=== PATIENT | female | born 1950 | race Caucasian/White ===

== ENCOUNTER → 2016-10-02 | Outpatient (CLI) | payer OTHER ==
[~2016-10-02] MED LIST: ACET-1256 PO; ASC400 PO; ATOR-22 PO; BUTA1CAP17 PO; CHOL100010 PO; CLS1 PO; CLTP PO; CYAN3INJ IM; FAMO20TA11 PO; LCTX PO; MULT-240 PO; RMCI IV
[2016-10-02 12:39] LABS: HEMATOCRIT 41.3 % (37-47); MEAN CELL VOLUME 90.6 fL (80-100); MEAN CORPUSCULAR HEMOGLOBIN 29.8 pg (25-34); MEAN CORPUSCULAR HGB CONC 32.9 g/dl (32-36); MEAN PLATELET VOLUME 9.4 fL (7.4-10.4); PLATELET COUNT 388 K/uL (130-400); RED BLOOD COUNT 4.56 M/uL (4.2-5.4); WHITE BLOOD COUNT 7.35 K/uL (4.8-10.8)
[2016-10-02 13:55] LABS: EOSINOPHIL % 3.6 %; LARGE GRANULAR LYMPH ABSOLUTE 1.52 K/uL; LARGE GRANULAR LYMPHOCYTE % 20.7 %; LYMPH ABS # 3.84 K/uL (1.2-3.4); LYMPHOCYTE % 52.3 %; NEUTROPHILS % 18.9 %
[2016-10-02 16:05] LABS: ALT/SGPT 34 U/L (12-78); AST/SGOT 29 U/L (15-37); BLOOD UREA NITROGEN 18 mg/dl (7-18); BUN/CREATININE RATIO 17.7 (10-20); CALCIUM 9.4 mg/dl (8.5-10.1); CARBON DIOXIDE 29 mmol/L (21-32); CHLORIDE 106 mmol/L (98-107); GLUCOSE 94 mg/dl (70-99); POTASSIUM 3.9 mmol/L (3.5-5.1); SODIUM 141 mmol/L (136-145)
[2016-10-02 16:09] LABS: ALB/GLOB RATIO 0.9 (0.9-2); ALKALINE PHOSPHATASE 63 U/L (45-117); CHOLESTEROL 208 mg/dl (0-200); CHOLESTEROL/HDL RATIO 3.9; HDL CHOLESTEROL 54 mg/dl; LDL CHOLESTEROL CALCULATED 109 mg/dl; TOTAL IRON BINDING CAPACITY 435 mcg/dl (250-450); TRIGLYCERIDES 226 mg/dl (0-150); VERY LOW DENSITY LIPOPROT CALC 45 mg/dl
[2016-10-02 16:21] LABS: COMPLETE YES
--- NOTE | 2016-10-08 10:15 | CODING QUERY MEDICAL NECESSITY ---
CQSUPPORTING DIAGNOSIS NEEDED A supporting diagnosis is required for the test/procedure performed on this patient in order for us to be reimbursed by the patient's insurance. Please provide a supporting diagnosis for the following test/procedure listed below next to the test name along with your signature. *If there is no additional diagnosis for this patient that would support the following test/procedure please document that below next to the test/procedure. Test(s)/Procedure(s) that require a supporting diagnosis: DOS 10/02/16 VITAMIN D VITAMIN B12 SERUM IRON STUDY ORDERED BY HAYLEE LAGOS Provider Signature: Date: Thank you Amanda Sherwood Health Information Management Once completed, please kindly fax back to [phone] For questions please call [phone]
== END | disposition home or self-care (01) ==
LOC: C.LAB1850 10:43
PROVIDERS: ATTEND Physician Assistant
DX: R53.83 Other fatigue (principal); E78.5 Hyperlipidemia, unspecified; D51.0 Vitamin B12 deficiency anemia due to intrinsic factor deficiency

== ENCOUNTER → 2016-10-07 | Outpatient (CLI) | payer OTHER ==
--- NOTE | 2016-10-07 16:44 | MAMMOGRAPHY REPORT ---
BILATERAL DIGITAL SCREENING MAMMOGRAM WITH CAD: 10/07/2016 CLINICAL HISTORY: Routine screening. Patient has no complaints. TECHNIQUE: Bilateral CC, MLO and repeat MLO views were obtained. Current study was also evaluated w ith a Computer Aided Detection (CAD) system. COMPARISON: Comparison is made to exams dated: 06/20/2015 mammogram, 06/19/2014 mammogram, 04/27/2013 mammogram - [facility], and 10/25/2008 mammogram - [facility]. BREAST COMPOSITION: There are scattered areas of fibroglandular density in both breasts. FINDINGS: There are scattered bilateral benign-appearing round and punctate microcalcifications. No suspicious mass, architectural distortion or cluster of suspicious microcalcifications is seen. IMPRESSION: ACR BI-RADS CATEGORY 1: NEGATIVE There is no mammographic evidence of malignancy. A 1 year screening mammogram is recommended. The p atient will receive written notification of the results. Approximately 10% of breast cancers are not detected with mammography. A negative mammographic repor t should not delay biopsy if a clinically suggestive mass is present. Isabel Hearn M.D. ay/:10/07/2016 15:56:46 Linoleum Layer Helper: Guilherme DE PAZ(R)(M), [facility] letter sent: Normal 1/2 BI-RADS Code: ACR BI-RADS Category 1: Negative
== END | disposition home or self-care (01) ==
LOC: C.MAMM 15:09
PROVIDERS: ATTEND Internal Medicine
DX: Z12.31 Encounter for screening mammogram for malignant neoplasm of breast (principal)

== ENCOUNTER → 2016-10-28 | Outpatient (CLI) | payer OTHER | END | disposition home or self-care (01) | LOC: C.LABBFT 12:49 | PROVIDERS: ATTEND Physician Assistant Medical | DX: R53.83 Other fatigue (principal) ==

== ENCOUNTER → 2017-05-31 | Outpatient (CLI) | payer OTHER ==
--- NOTE | 2017-05-31 16:35 | DIAGNOSTIC IMAGING REPORT ---
TWO VIEW CHEST CLINICAL HISTORY: Bronchitis. FINDINGS: PA and lateral chest radiographs are compared to study dated 06/09/2011. The cardiomediastinal silhouette is unremarkable. The lungs and pleural spaces are clear. There is no pneumothorax. The skeletal structures are osteopenic. The bony thorax appears intact. Cholecystectomy clips are noted. IMPRESSION: No active disease in the chest. Electronically signed by: Morteza Garnica M.D. 05/31/2017 4:34 PM Dictated Date/Time: 05/31/2017 4:34 PM
== END | disposition home or self-care (01) ==
LOC: C.RAD1850 16:08
PROVIDERS: ATTEND Internal Medicine
DX: J20.9 Acute bronchitis, unspecified (principal)

== ENCOUNTER 2017-06-18 17:33 | Inpatient (IN) | payer OTHER ==
[~2017-06-18] VITALS: Ht 170.2 cm; Wt 114.9 kg
[~2017-06-18 17:33] MED LIST changes: -ACET1TAB84 PO; -ASPI81TA28 PO; -CALC-579 PO; -CHOL100027 PO; -COLE1TAB5 PO; -CYNI1000 IM; -FAMO40TA6 PO; -LPT40 PO; -MESA1TAB4 PO; -PLV75 PO; -PROB1TAB16 PO; -RMCI IV
[2017-06-18 17:37] VITALS: Ht 170.2 cm; Wt 114.9 kg
[2017-06-18] MEDS ORDERED: ASPIRIN 81 MG CHEW PO STA (17:47)
[2017-06-18] MEDS ORDERED: RMCI IV (18:05)
--- NOTE | 2017-06-18 18:05 | EMERGENCY ROOM VISIT NOTE ---
History Report prepared by Deepak: Hernesto Medeiros Under the Supervision of: Dr. Morteza Peterson M.D. First contact with patient: 17:44 Chief Complaint: STROKE SYMPTOMS Stated Complaint: STROKE SX, ABN MRI- PHYSICIAN REFERRED History of Present Illness The patient is a 66 year old female who presents to the Emergency Room with complaints of worsening stroke symptoms for the past couple of months. The patient states that she has been getting increasingly dizzy, and she has been getting worse headaches. She states that she feels lightheaded and off balanced. She additionally states that she had some right neck pain that went into her head a week ago. The patient also reports that occasionally she loses her vision, though she does not lose any consciousness. She had some left facial numbness a couple of months ago, and she states that she has not noticed any weakness. The patient states that she saw a new PCP this week, and she had an MRI of her brain done today, and it was abnormal. The patient additionally states that she has a chest heaviness, though she recently had bronchitis. Source of History: patient Onset: a couple of months ago Position: other (global) Quality: other (stroke symptoms) Timing: worsening Associated Symptoms: + headache, + neck pain, No LOC Note: Associated symptoms: Dizzy, losing her vision, and chest heaviness. Review of Systems See HPI for pertinent positives & negatives. A total of 10 systems reviewed and were otherwise negative. Past Medical & Surgical Medical Problems: (1) GERD (gastroesophageal reflux disease) (2) HLD (hyperlipidemia) Family History Diabetes mellitus FH: heart disease Social History Smoking Status: Never Smoker Alcohol Use: none Drug Use: none Marital Status: Occupation Status: employed Current/Historical Medications Scheduled Acetaminophen (Tylenol), 1,000 MG PO HS Calcium Carbonate-Cholecalcife (Calcium/Vitamin D3 600-400 mg-Unit), 1 TAB PO BID Cholecalciferol (Vitamin D 1000 Unit), 1,000 INTER.UNIT PO BID Colestipol Hcl (Colestipol Hcl), 1 GM PO BID Cyanocobalamin (Cyanocobalamin), 1,000 MCG IM MONTHLY Famotidine (Pepcid), 20 MG PO HS Famotidine (Pepcid), 40 MG PO BID Infliximab (Remicade), 200 MG IV Q 8 WEEKS Lactobacillus Acidophilus (Floranex), 1 TAB PO TIDM Mesalamine (Asacol Hd), 800 MG PO TID Multiple Vitamins W/ Minerals (Womens One Daily), 1 TAB PO DAILY Probiotic Product (Probiotic), 1 TAB PO BID Scheduled PRN Acetaminophen (Tylenol Arthritis Ext Rel), 650-1,300 MG PO DAILY PRN for Pain Idsixajpnf-Abjmeupuxlubu-Lingo (Fioricet), 1-2 TAB PO BID PRN for Headache Allergies Coded Allergies: Morphine (Verified Adverse Reaction, Severe, HALLUCINATIONS, 06/26/15) HALLUCINATIONS Amoxicillin (Verified Adverse Reaction, Mild, DIARRHEA, 06/26/15) Clavulanic Acid (Verified Adverse Reaction, Mild, DIARRHEA, 06/26/15) Physical Exam Vital Signs Date Time Temp Pulse Resp B/P (MAP) Pulse Ox O2 Delivery O2 Flow Rate FiO2 06/18/17 18:50 95 Room Air 06/18/17 18:00 95 Room Air 06/18/17 17:53 86 06/18/17 17:37 82 18 152/100 98 Room Air Physical Exam GENERAL: Patient is in no acute distress. HEENT: No acute trauma, normocephalic atraumatic, mucous membranes moist, no nasal congestion, no scleral icterus. NECK: No stridor, no adenopathy, no meningismus, trachea is midline. LUNGS: Clear to auscultation bilaterally, no wheeze, no rhonchi, breath sounds equal. HEART: Without murmurs gallops or rubs, regular rate and rhythm. ABDOMEN: Soft, nontender, bowel sounds positive, no hernias, no peritonitis. EXTREMITIES: No cyanosis or edema, full range of motion of all the joints without pain or difficulty, no signs for acute trauma. NEUROLOGIC: Awake, alert, oriented x3. No facial droop or speech slur. No lower extremity drift. No cerebellar dysfunction. Equal drift slightly in both upper extremities. SKIN: No rash, no jaundice, no diaphoresis. Medical Decision & Procedures ER Provider Diagnostic Interpretation: Radiology results as stated below per my review and radiologist interpretation: [~ rep ct add3]] Brain MRI WITHOUT CONTRAST HISTORY: DIZZINESS, headache,POST CONCUSSION SYNDROME TECHNIQUE: Multiplanar multisequence MRI of the brain was performed without the use of contrast. COMPARISON STUDY: Brain MRI 02/20/2013. FINDINGS: There are 2 punctate foci of restricted diffusion to within the right occipital lobe on image 14 and left posterior frontal lobe on image 19. These are consistent with acute infarcts. There are a few old punctate lacunar infarction within the bilateral cerebellar hemispheres. There is no old small right frontal infarct, unchanged. There is no mass, hematoma, or midline shift. The paranasal sinuses are clear. The mastoid air cells are clear. The ventricles and sulci demonstrate mild age-related involutional changes. Scattered foci of T2 hyperintensity seen within the periventricular and subcortical white matter are nonspecific but suggestive of mild microvascular ischemic changes. The major vascular flow voids at the skull base are well-maintained. IMPRESSION: 1. There are 2 punctate acute infarcts seen within the right occipital lobe and left posterior frontal lobe. 2. Mild microvascular ischemic changes are again noted. Electronically signed by: Rinku Tim M.D. 06/18/2017 4:10 PM Dictated Date/Time: 06/18/2017 4:02 PM CHEST ONE VIEW PORTABLE HISTORY: 66 years-old Female sob acute shortness of breath COMPARISON: Chest radiograph 05/31/2017 TECHNIQUE: Portable AP view of the chest FINDINGS: Cardiomediastinal and hilar silhouettes are within normal limits. Atherosclerosis of the aorta. No pneumothorax, pleural effusion, focal airspace consolidation or overt pulmonary edema. The bones of the chest appear grossly intact. IMPRESSION: No acute process. The above report was generated using voice recognition software. It may contain grammatical, syntax or spelling errors. Electronically signed by: Booker Cota M.D. 06/18/2017 6:16 PM Dictated Date/Time: 06/18/2017 6:15 PM Laboratory Results 06/18/17 18:00 Red Blood Count 4.52, Mean Corpuscular Volume 90.3, Mean Corpuscular Hemoglobin 30.1, Mean Corpuscular Hemoglobin Concent 33.3, Mean Platelet Volume 9.3 06/18/17 18:00 Test 06/18/17 18:00 White Blood Count 9.55 K/uL (4.8-10.8) Red Blood Count 4.52 M/uL (4.2-5.4) Hemoglobin 13.6 g/dL (12.0-16.0) Hematocrit 40.8 % (37-47) Mean Corpuscular Volume 90.3 fL (80-100) Mean Corpuscular Hemoglobin 30.1 pg (25-34) Mean Corpuscular Hemoglobin Concent 33.3 g/dl (32-36) Platelet Count 312 K/uL (130-400) Mean Platelet Volume 9.3 fL (7.4-10.4) RDW Standard Deviation 45.0 fL (36.4-46.3) RDW Coefficient of Variation 13.7 % (11.5-14.5) Prothrombin Time 9.5 SECONDS (9.0-12.0) Prothromb Time International Ratio 0.9 (0.9-1.1) Activated Partial Thromboplast Time 21.2 SECONDS (21.0-31.0) Partial Thromboplastin Ratio 0.8 Anion Gap 9.0 mmol/L (3-11) Est Creatinine Clear Calc Drug Dose 73.0 ml/min Estimated GFR () 66.8 Estimated GFR (Non- 57.7 BUN/Creatinine Ratio 20.0 (10-20) Calcium Level 9.7 mg/dl (8.5-10.1) Magnesium Level 1.9 mg/dl (1.8-2.4) Total Bilirubin 0.3 mg/dl (0.2-1) Direct Bilirubin < 0.1 mg/dl (0-0.2) Aspartate Amino Transf (AST/SGOT) 27 U/L (15-37) Alanine Aminotransferase (ALT/SGPT) 32 U/L (12-78) Alkaline Phosphatase 57 U/L (45-117) Total Creatine Kinase 65 U/L (26-192) Creatine Kinase MB 1.6 ng/ml (0.5-3.6) Creatine Kinase MB Ratio 2.5 (0-3.0) Troponin I < 0.015 ng/ml (0-0.045) Total Protein 7.7 gm/dl (6.4-8.2) Albumin 3.4 gm/dl (3.4-5.0) Laboratory results reviewed by me. Medications Administered Medications (Trade) Dose Ordered Sig/Alex Route Start Time Stop Time Status Last Admin Dose Admin Aspirin (Aspirin Chew) 324 mg NOW STAT PO 06/18/17 17:47 06/18/17 17:51 DC 06/18/17 18:14 324 MG ECG Indication: other (stroke like symptoms) Rate (beats per minute): 81 Rhythm: normal sinus Findings: no acute ischemic change, no ectopy Change: Patient's EKG interpreted by me. ED Course 174: The patient was evaluated in room A12. A complete history and physical exam was performed. 174: Aspirin 324mg PO 180: Discussed the patient's case with Dr. Boni Lopez. The patient will be evaluated for further management. Medical Decision Differential diagnoses include: Stroke, dysrhythmia, electrolyte imbalance, anemia, intracranial bleeding, and vertigo. There is no leukocytosis or worrisome anemia. No significant electrolyte abnormality, kidney failure or hepatitis. EKG shows a normal sinus rhythm, no acute ischemia. Cardiac enzyme testing times one is not consistent with acute cardiac injury. Chest x-ray does not show pneumonia or CHF. Brain MRI from today does show 2 acute infarcts. On my exam, there were no focal neurologic deficits. No speech slurring. The patient was given oral aspirin as stroke prevention. She is clearly not a candidate for TPA as she is well out of the window- she has had symptoms for days. Admission/observation is warranted. A stroke workup is required. I spoke to the patient and the family caseworker. The on-call hospitalist was consulted. Medication Reconcilliation Current Medication List: was personally reviewed by me Blood Pressure Screening Patient's blood pressure: Elevated blood pressure Monitored by the hospitalist Consults Time Called: 1804 Consulting Physician: Dr. Boni Lopez Returned Call: 1807 Discussed the patient's case with Dr. Boni Lopez. The patient will be evaluated for further management. Impression Primary Impression: CVA (cerebral vascular accident) Scribe Attestation The scribe's documentation has been prepared under my direction and personally reviewed by me in its entirety. I confirm that the note above accurately reflects all work, treatment, procedures, and medical decision making performed by me. Departure Information Dispostion Being Evaluated By Hospitalist Referrals RV. Bolton MD (PCP) Patient Instructions My [facility] Stroke History Time Last Known Well several days ago Stroke t-PA Criteria Reviewed Does NOT meet criteria for t-PA Reason t-PA Not Given Treatment not indicated
--- NOTE | 2017-06-18 18:18 | DIAGNOSTIC IMAGING REPORT ---
CHEST ONE VIEW PORTABLE HISTORY: 66 years-old Female sob acute shortness of breath COMPARISON: Chest radiograph 05/31/2017 TECHNIQUE: Portable AP view of the chest FINDINGS: Cardiomediastinal and hilar silhouettes are within normal limits. Atherosclerosis of the aorta. No pneumothorax, pleural effusion, focal airspace consolidation or overt pulmonary edema. The bones of the chest appear grossly intact. IMPRESSION: No acute process. The above report was generated using voice recognition software. It may contain grammatical, syntax or spelling errors. Electronically signed by: Booker Cota M.D. 06/18/2017 6:16 PM Dictated Date/Time: 06/18/2017 6:15 PM
[2017-06-18 18:22] LABS: HEMATOCRIT 40.8 % (37-47); HEMOGLOBIN 13.6 g/dL (12.0-16.0); MEAN CELL VOLUME 90.3 fL (80-100); MEAN CORPUSCULAR HEMOGLOBIN 30.1 pg (25-34); MEAN CORPUSCULAR HGB CONC 33.3 g/dl (32-36); MEAN PLATELET VOLUME 9.3 fL (7.4-10.4); PLATELET COUNT 312 K/uL (130-400); RED CELL DISTRIBUTION WIDTH CV 13.7 % (11.5-14.5); WHITE BLOOD COUNT 9.55 K/uL (4.8-10.8)
[2017-06-18 18:33] LABS: INR 0.9 (0.9-1.1); PTT PATIENT 21.2 SECONDS (21.0-31.0)
[2017-06-18 18:41] LABS: ALBUMIN 3.4 gm/dl (3.4-5.0); ALT/SGPT 32 U/L (12-78); BLOOD UREA NITROGEN 20 mg/dl (7-18); CALCIUM 9.7 mg/dl (8.5-10.1); CARBON DIOXIDE 24 mmol/L (21-32); CREATININE 1.02 mg/dl (0.60-1.20); GLUCOSE 102 mg/dl (70-99); POTASSIUM 3.7 mmol/L (3.5-5.1); SODIUM 136 mmol/L (136-145)
[2017-06-18] MEDS ORDERED: MAGNESIUM HYDROXIDE SUSP 30 ML UDC PO PRN (18:45)
[2017-06-18] MEDS ORDERED: ACETAMINOPHEN 325 MG TAB PO PRN (18:45)
[2017-06-18] MEDS ORDERED: PHARMACIST DISCHARGE MED REC CONSULT PRN (18:45)
[2017-06-18] MEDS ORDERED: BUTALBITAL/ACETAMIN/CAFFEINE TAB PO PRN (18:45)
[2017-06-18] MEDS ORDERED: ONDANSETRON INJ 2 MG/ML 2 ML VIAL IV PRN (18:45)
[2017-06-18 18:46] LABS: ALKALINE PHOSPHATASE 57 U/L (45-117); AST/SGOT 27 U/L (15-37); CKMB 1.6 ng/ml (0.5-3.6); TOTAL PROTEIN 7.7 gm/dl (6.4-8.2)
[2017-06-18 18:50] VITALS: O2SAT 95
[2017-06-18] MEDS ORDERED: COLE1TAB5 PO (18:51)
[2017-06-18] MEDS ORDERED: CALC-579 PO (18:51)
[2017-06-18] MEDS ORDERED: ACET1TAB84 PO (18:51)
[2017-06-18] MEDS ORDERED: PROB1TAB16 PO (18:51)
[2017-06-18] MEDS ORDERED: FAMO40TA6 PO (18:51)
[2017-06-18] MEDS ORDERED: CHOL100027 PO (18:51)
[2017-06-18] MEDS ORDERED: MESA1TAB4 PO (18:51)
[2017-06-18] MEDS ORDERED: CYNI1000 IM (18:51)
--- NOTE | 2017-06-18 18:55 | History and Physical ---
History & Physical Date & Time of Service: Jun 18, 2017 at 18:41 Chief Complaint: Stroke Sx, Abn Mri- Physician Referred Primary Care Physician: RV. Bolton MD History of Present Illness Source: patient 66 y/o F who was sent to the ED by her PCP after abn MRI findings. Pt was seen this week for a new pt physical with Dr. Ambrose. She noted to Dr. Ambrose that she has been having dizziness, headaches, fatigue, and cognitive issues with occasional complete loss of vision for the last few years. This started after she had a concussion about 5 years ago (old MRI was 2012) after a fall in a warehouse freezer. No acute findings on MRI at that time, but since that time she started having these sx and they are increasing in intensity, duration, and frequency recently. She has had no recent falls. She does not remember her initial fall but is not sure if she blacked out during or after that fall. Pt states she never loses consciousness, but does occasionally have blacked out vision. She can hear and think and is aware of what is happening. Vision will spontaneously return. She also has cognitive issues in the form of inability to form words. She knows what she wants to say and is not confused, but cannot make her mouth forms words at times. She also has noted that she will occasionally do the opposite of directives that are given to her. No fawad confusion, word slurring, facial droop, inability to use UE/LE. She has no issues with PO intake, specifically coughing or choking with PO. Occasional chest heaviness, but no chest pain. Pt denies fever, SOB, abd pain, n/v/c/d, LE pain or swelling. Past Medical/Surgical History Crohn's GERD B12 deficiency Concussion 2012 Denies PA, DM, HTN, prior hx of CVA Family History Family history was reviewed; no changes noted. Mother had an PA MGF had a CVA Social History Smoking Status: Never Smoker Alcohol Use: occasionally (rarely) Drug Use: none Marital Status: Housing status: lives with family Occupational Status: employed Immunizations History of Influenza Vaccine: No History of Tetanus Vaccine?: No History of Pneumococcal: No History of Hepatitis B Vaccine: No Multi-Drug Resistant Organisms History of MDRO: No Allergies Coded Allergies: Morphine (Verified Adverse Reaction, Severe, HALLUCINATIONS, 2/3/16) HALLUCINATIONS Amoxicillin (Verified Adverse Reaction, Mild, DIARRHEA, 06/26/15) Clavulanic Acid (Verified Adverse Reaction, Mild, DIARRHEA, 06/26/15) Home Medications Scheduled Acetaminophen (Tylenol), 1,000 MG PO HS Atorvastatin (Lipitor), 20 MG PO HS Calcium/Vitamin D (Caltrate 600 Plus *), 1 TAB PO BID Cholecalciferol (Vitamin D), 1,000 INTER.UNIT PO BID Colestipol Hcl (Colestid *), 1 GM PO BID Cyanocobalamin (Vitamin B-12 Inj), 1,000 MCG IM MONTHLY Famotidine (Pepcid), 20 MG PO HS Infliximab (Remicade), 100 MG IV Q 6 WEEKS Lactobacillus Acidophilus (Floranex), 1 TAB PO TIDM Mesalamine (Asacol *), 800 MG PO TID Multiple Vitamins W/ Minerals (Womens One Daily), 1 TAB PO DAILY Scheduled PRN Gkolyfnksn-Wycnilxheiunh-Nwmxs (Fioricet), 1-2 TAB PO BID PRN for Headache Review of Systems Pertinent positives and negatives reviewed in HPI--all others negative Physical Exam Vital Signs Date Time Temp Pulse Resp B/P (MAP) Pulse Ox O2 Delivery O2 Flow Rate FiO2 06/18/17 18:00 95 Room Air 06/18/17 17:53 86 06/18/17 17:37 82 18 152/100 98 Room Air General Appearance: no apparent distress, + obese Head: normocephalic, atraumatic Eyes: normal inspection, PERRL, EOMI, sclerae normal Respiratory/Chest: normal breath sounds, no respiratory distress Cardiovascular: regular rate, rhythm, no edema Abdomen/GI: non tender, soft Extremities/Musculoskelatal: no calf tenderness, no pedal edema Neurologic/Psych: lead former II-XII nml as tested, alert, normal mood/affect, oriented x 3, + pertinent finding (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, 5/5 strength against resistance in LE in all planes) Skin: normal color, warm/dry Diagnostics Laboratory Results Results Past 24 Hours Test 06/18/17 17:47 06/18/17 18:00 06/18/17 18:32 Range/Units Creatine Kinase MB Ratio 0-3.0 White Blood Count 9.55 4.8-10.8 K/uL Red Blood Count 4.52 4.2-5.4 M/uL Hemoglobin 13.6 12.0-16.0 g/dL Hematocrit 40.8 37-47 % Mean Corpuscular Volume 90.3 80-100 fL Mean Corpuscular Hemoglobin 30.1 25-34 pg Mean Corpuscular Hemoglobin Concent 33.3 32-36 g/dl Platelet Count 312 130-400 K/uL Mean Platelet Volume 9.3 7.4-10.4 fL RDW Standard Deviation 45.0 36.4-46.3 fL RDW Coefficient of Variation 13.7 11.5-14.5 % Prothrombin Time 9.5 9.0-12.0 SECONDS Prothromb Time International Ratio 0.9 0.9-1.1 Activated Partial Thromboplast Time 21.2 21.0-31.0 SECONDS Partial Thromboplastin Ratio 0.8 Diagnostic Radiology MRI: 1. There are 2 punctate acute infarcts seen within the right occipital lobe and left posterior frontal lobe. 2. Mild microvascular ischemic changes are again noted. Normal EKG Impression Assessment and Plan 66 y/o F who was admitted on 06/18 for CVA CVA: MRI noted for acute lesions in R occipital and L posterior frontal ?? related to concussion hx Reports carotid US neg as outpt, not listed in system CT head/neck pending ECHO pending CBC, PRP, TSH, lipids, A1c pending Recent lipid panel 09/2016 was WNL in a non-DM/PA/CVA pt and pt denies current use of medication Will start statin, plavix Neuro checks, neuro c/s No ambulation issues, will hold on PT/OT Elevated BP: noted in the ED, no hx of HTN Monitor for now and tx if ongoing Crohn's: stable, continue home meds GERD: continue home meds Other: Full code SCDs for DVT proph Reg diet Level of Care Telemetry Resuscitation Status FULL RESUSCITATION VTE Prophylaxis VTE Risk Assessment Done? Y/N: Yes Risk Level: Low
[2017-06-18] MEDS ORDERED: INFLIXIMAB 100 MG/10 ML VIAL IV SCH (19:00)
[2017-06-18] MEDS ORDERED: NON-FORMULARY MEDICATION (Acetaminophen (Tylenol Arthritis Ext Rel) 650 MG) PO PRN (19:00)
[2017-06-18] MEDS ORDERED: OPTIRAY 320 IV PRN (19:00)
--- NOTE | 2017-06-18 19:36 | DIAGNOSTIC IMAGING REPORT ---
HEAD CTA HISTORY: Stroke symptoms. TECHNIQUE: Multiaxial CT images of the head were performed both before and after the intravenous administration of contrast to evaluate the major cerebral vessels. Maximum intensity projection images were also obtained. A dose lowering technique was utilized adhering to the principles of ALARA. COMPARISON: Head CT 02/10/2013. Brain MRI 06/18/2017. FINDINGS: There is no mass, hematoma, midline shift, or acute infarct. There is an old small right frontal lobe infarct. Visualized intracranial internal carotid arteries, distal vertebral arteries, and basilar artery are widely patent. There is no significant stenosis, occlusion, or aneurysm seen within the bilateral ACAs, MCAs, or veterans services specialist. IMPRESSION: No significant stenosis, occlusion, or aneurysm within the [place]. Electronically signed by: Rinku Tim M.D. 06/18/2017 7:35 PM Dictated Date/Time: 06/18/2017 7:29 PM
--- NOTE | 2017-06-18 19:39 | DIAGNOSTIC IMAGING REPORT ---
NECK ANGIO WITH CONTRAST CLINICAL HISTORY: 66 years-old Female presents with acute punctate infarcts of the right occipital and right posterior frontal lobe COMPARISON STUDY: MRI brain of same day TECHNIQUE: Following the IV administration of 119 of Optiray 320, CT angiogram of the neck was performed from the aortic arch to the skull base. Images are reviewed in the axial, sagittal, and coronal planes. 3-D MIPS images are created and assessed. IV contrast was administered without complication. All measurements were calculated based on NASCET criteria. A dose lowering technique was utilized adhering to the principles of ALARA. CT DOSE: 1144.14 mGy.cm FINDINGS: The opacified pulmonary arterial tree appears unremarkable. The aortic arch appears unremarkable without aneurysm or dissection. Imaged bilateral subclavian arteries appear patent. There is mild tortuosity involving the proximal portions of the common carotid arteries which are widely patent. There is a mild degree of mixed plaquing within the left carotid ball causing less than 50% stenosis. No significant atherosclerosis of the right carotid bulb. The bilateral internal carotid arteries are widely patent. There is mild atherosclerotic plaquing involving the cavernous and clinoid portions of the bilateral internal carotid arteries, right greater than left causing less than 50% stenosis. The bilateral vertebral arteries are codominant and widely patent. No aneurysm, dissection or high-grade stenosis. The basilar artery is also widely patent. Mild subsegmental atelectasis of the lung apices. 1.2 cm low attenuating nodule of the right thyroid. Soft tissues are otherwise unremarkable. No pathologic adenopathy. Mild facet arthrosis throughout the cervical spine. Multilevel uncovertebral spurring. IMPRESSION: 1. Unremarkable CTA of the neck without high-grade stenosis, aneurysm, dissection or proximal branch occlusion. 2. Mild mixed plaquing of the left carotid bulb, bilateral cavernous and clinoid portions of the internal carotid arteries without high-grade stenosis. 3. 1.2 cm low attenuating nodule of the right thyroid. The above report was generated using voice recognition software. It may contain grammatical, syntax or spelling errors. Electronically signed by: Booker Cota M.D. 06/18/2017 7:38 PM Dictated Date/Time: 06/18/2017 7:30 PM
[2017-06-18 19:49] LABS: BASO % 0.2 %; BASO ABS # 0.02 K/uL (0-0.2); EOS % 5.2 %; IG# 0.02 K/uL (0.00-0.02); LYMPH ABS # 5.44 K/uL (1.2-3.4); MONO % 10.5 %; NEUT % 26.9 %; NEUT ABS # 2.57 K/uL (1.4-6.5)
[2017-06-18 19:56] VITALS: BP 156/94; PULSE 73; TEMP 36.7; O2SAT 95
[2017-06-18] MEDS: FAMOTIDINE 20 MG TAB PO SCH (20:32)
[2017-06-18] MEDS: CALCIUM 600MG + VIT D 400 IU TAB PO SCH (20:33)
[2017-06-18] MEDS: CHOLECALCIFEROL 1000 INTER.UNIT TAB PO SCH (20:33)
[2017-06-18] MEDS ORDERED: NON-FORMULARY MEDICATION (Probiotic Product (Probiotic) 1 TAB) PO SCH (21:00)
[2017-06-18] MEDS ORDERED: MESALAMINE 800 MG PO SCH (21:00)
[2017-06-18] MEDS ORDERED: MESALAMINE 400 MG CAPDR PO SCH (21:00)
[2017-06-18] MEDS ORDERED: FAMOTIDINE 20 MG TAB PO SCH (21:00)
[2017-06-18] MEDS ORDERED: [UNRECOGNIZED DRUG - OTHER] PO SCH (21:00)
[2017-06-18] MEDS ORDERED: CALCIUM CARBONATE PO SCH (21:00)
[2017-06-18] MEDS ORDERED: COLESTIPOL HCL 1 GM TAB PO SCH (21:00)
[2017-06-18] MEDS ORDERED: CHOLECALCIFEROL 1000 INTER.UNIT TAB PO SCH (21:00)
[2017-06-18] MEDS ORDERED: CHOLECALCIFEROL PO SCH (21:00)
[2017-06-18] MEDS ORDERED: ACETAMINOPHEN 500 MG TAB PO SCH (21:00)
[2017-06-18] MEDS: COLESTIPOL HCL 1 GM TAB PO SCH (21:46)
[2017-06-18 23:42] VITALS: BP 112/65; PULSE 67; TEMP 36.3; O2SAT 96
[2017-06-19 04:00] VITALS: BP 99/65; PULSE 63; TEMP 36.5; O2SAT 98
[2017-06-19 06:34] LABS: HEMOGLOBIN 12.8 g/dL (12.0-16.0); MEAN CELL VOLUME 89.8 fL (80-100); MEAN CORPUSCULAR HEMOGLOBIN 30.3 pg (25-34); MEAN CORPUSCULAR HGB CONC 33.7 g/dl (32-36); MEAN PLATELET VOLUME 8.9 fL (7.4-10.4); PLATELET COUNT 265 K/uL (130-400); RED CELL DISTRIBUTION WIDTH CV 13.9 % (11.5-14.5); RED CELL DISTRIBUTION WIDTH SD 45.3 fL (36.4-46.3); WHITE BLOOD COUNT 7.39 K/uL (4.8-10.8)
[2017-06-19 07:02] LABS: HEMOGLOBIN A1C 5.5 % (4.5-5.6)
[2017-06-19 07:13] LABS: CALCIUM 9.1 mg/dl (8.5-10.1); CREATININE 0.94 mg/dl (0.60-1.20)
[2017-06-19 07:29] LABS: BASO % 0.4 %; BASO ABS # 0.03 K/uL (0-0.2); EOS % 7.6 %; EOS ABS # 0.56 K/uL (0-0.5); IG# 0.01 K/uL (0.00-0.02); LYMPH % 61.2 %; LYMPH ABS # 4.52 K/uL (1.2-3.4); MONO % 11.5 %; MONO ABS # 0.85 K/uL (0.11-0.59); NEUT % 19.2 %; NEUT ABS # 1.42 K/uL (1.4-6.5)
[2017-06-19 07:34] VITALS: BP 123/83; PULSE 68; TEMP 36.6; O2SAT 98
[2017-06-19] MEDS: LACTOBACILLUS ACIDOPHILUS (FLORANEX) TAB PO SCH ×2 (07:54→11:53)
[2017-06-19] MEDS: FAMOTIDINE 20 MG TAB PO SCH (07:55)
[2017-06-19] MEDS: CALCIUM 600MG + VIT D 400 IU TAB PO SCH (07:56)
[2017-06-19] MEDS ORDERED: ATORVASTATIN 40 MG TAB PO SCH (09:00)
[2017-06-19] MEDS: CHOLECALCIFEROL 1000 INTER.UNIT TAB PO SCH (09:00)
[2017-06-19] MEDS ORDERED: CEROVITE ADV FORMULA TAB PO SCH (09:00)
[2017-06-19] MEDS ORDERED: CLOPIDOGREL BISULFATE 75 MG TAB PO SCH (09:00)
[2017-06-19] MEDS: COLESTIPOL HCL 1 GM TAB PO SCH (11:15)
[2017-06-19 11:32] VITALS: BP_SYST 172; BP_SYST 173; BP_DIAS 88; BP_DIAS 92; PULSE 61; TEMP 36.4; O2SAT 96
--- NOTE | 2017-06-19 12:06 | Neurology Consultation ---
Neurology Consultation Date of Consultation: Jun 19, 2017. Attending Physician: Tanner Babb D.O. Primary Care Physician: RV. Bolton MD Reason for Consultation: Stroke History of Present Illness Source: patient, hospital records This is a 66-year-old right-handed female who presents after MRI showing tiny acute strokes. Patient reports that the reason for the MRI was because she was having chronic ongoing issues of dizziness and headache. She feels like the symptoms have been going on since her concussion in 2012 but have been slowly worsening. She describes the dizziness as brief episodes of feeling like things are moving. She describes the headaches as daily. Tends to be more frontal. She may get a little bit of blurry vision with headaches. In addition she also notes some vision getting dark for a few seconds to minutes when she gets the dizziness episodes as well. She describes the headaches is also having tight or throbbing quality to them. The tender last hours to days. She typically takes Tylenol for them. Describes them mostly as a low level most of the time. Denies any headache history or migraine headache history. Reports that his sleep is okay but may have mild snoring. The patient does report having a bad headache last week and that lasted for 10- 15 minutes. Denies any other discrete new neurological symptoms. Denies any numbness or weakness. Reported some numbness or tingling of her upper lip a few days ago. Denies any changes with her walking. She does report some issues with word finding and cognition/memory that has been ongoing since her concussion. She also reports that sometimes she does feel some heart palpitations and more recently a heavy feeling in her chest but she thought this may been due to a recent viral illness. Patient also notes that her Remicade has been increased recently and she hasn't quite felt well since that medication changes well. MRI of the brain report and images from the 26 was reviewed by myself. The patient has to tiny subacute infarcts in the right occipital and left posterior frontal lobe. Also noted some small old lacunar infarcts in the bilateral cerebellum and right frontal. CTA of the head and neck noted some mild plaque formations but was otherwise unremarkable. Total cholesterol 198, LDL 112, HDL 47, triglycerides 196,Hg A1c 5.5 TSH was mildly elevated at 4.7 Past Medical/Surgical History Medical Problems: (1) CVA (cerebral vascular accident) Status: Acute Concussion with loss of consciousness 2012 Crohn's disease B12 deficiency DVT in right lower extremity that was described as superficial and likely secondary to trauma Family History Mother with SD, dyslipidemia, diabetes, CAD, A. fib, and possibly blood clots Maternal grandfather with CVA Maternal grandmother with A. fib Social History Patient is normally independent in her activities of daily living. No tobacco use. No alcohol use. No illegal drug use Smoking Status: Never smoker Alcohol Use: occasionally (rarely) Drug Use: none Marital Status: Occupation Status: employed Allergies Coded Allergies: Morphine (Verified Adverse Reaction, Severe, HALLUCINATIONS, 06/26/15) HALLUCINATIONS Amoxicillin (Verified Adverse Reaction, Mild, DIARRHEA, 06/26/15) Clavulanic Acid (Verified Adverse Reaction, Mild, DIARRHEA, 06/26/15) Current Inpatient Medications Current Inpatient Medications Medications (Trade) Dose Ordered Sig/Alex Route Start Time Stop Time Status Last Admin Dose Admin Atorvastatin Calcium (Lipitor Tab) 40 mg QAM PO 06/19/17 09:00 07/19/17 08:59 06/19/17 07:55 40 MG Clopidogrel Bisulfate (plAVix TAB) 75 mg QAM PO 06/19/17 09:00 07/19/17 08:59 06/19/17 07:55 75 MG Miscellaneous Information (Pharmacist Discharge Med Rec Consult) 1 ea UD PRN N/A 06/18/17 18:45 07/18/17 18:44 Acetaminophen (Tylenol Tab) 650 mg Q4H PRN PO 06/18/17 18:45 07/18/17 18:44 Magnesium Hydroxide (Milk Of Magnesia Susp) 30 ml Q12H PRN PO 06/18/17 18:45 07/18/17 18:44 Ondansetron HCl (Zofran Inj) 4 mg Q6H PRN IV 06/18/17 18:45 07/18/17 18:44 Acetaminophen (Tylenol Tab) 1,000 mg HS PO 06/18/17 21:00 07/18/17 20:59 06/18/17 20:32 1,000 MG Calcium/Vitamin D (Caltrate Plus Tab) 1 tab BID PO 06/18/17 21:00 07/18/17 20:59 06/19/17 07:56 1 TAB Cholecalciferol (Vitamin D Tab) 1,000 inter.unit BID PO 06/18/17 21:00 07/18/17 20:59 06/18/17 20:33 1,000 INTER.UNIT Colestipol HCl (Colestid Tab) 1 gm BID@1000,2200 PO 06/18/17 22:00 07/18/17 21:59 06/18/17 21:46 1 GM Lactobacillus Acidophilus (Floranex Tab) 1 tab TIDM PO 06/19/17 07:30 07/19/17 07:59 06/19/17 07:54 1 TAB Multivitamins/ Minerals (Multivitamin W/ Minerals Tab) 1 tab DAILY PO 06/19/17 09:00 07/19/17 08:59 06/19/17 07:56 1 TAB Acetaminophen/ Butalbital/ Caffeine (Fioricet Tab) 1-2 tabs PO BID PRN headache BID PRN PO 06/18/17 18:45 07/18/17 18:44 Ioversol (Optiray 320) 100 ml UD PRN IV 06/18/17 19:00 06/22/17 18:59 Famotidine (Pepcid Tab) 40 mg BID PO 06/18/17 21:00 07/18/17 20:59 06/19/17 07:55 40 MG Miscellaneous Information (Order Awaiting Action) 1 ea QS N/A 06/19/17 00:00 07/19/17 00:00 Review of Systems Complete review of systems is otherwise negative except for the above noted in history of present illness Physical Exam Vital Signs (Past 24 Hrs): Date Time Temp Pulse Resp B/P (MAP) Pulse Ox O2 Delivery O2 Flow Rate FiO2 06/19/17 11:32 36.4 61 18 172/88 (116) 96 173/92 (119) 06/19/17 08:00 Room Air 06/19/17 07:34 36.6 68 16 123/83 (96) 98 06/19/17 04:00 36.5 63 20 99/65 (76) 98 Room Air 06/19/17 04:00 Room Air 06/19/17 00:01 Room Air 06/18/17 23:42 36.3 67 20 112/65 (81) 96 Room Air 06/18/17 20:00 Room Air 06/18/17 19:56 36.7 73 18 156/94 (114) 95 Room Air 06/18/17 18:50 95 Room Air 06/18/17 18:00 95 Room Air 06/18/17 17:53 86 06/18/17 17:37 82 18 152/100 98 Room Air Gen.: Patient is alert and oriented in no acute distress, sitting in chair Heart: Regular rate and rhythm Extremities: No gross deformities or rashes noted Neurological examination: Mental status: Patient is alert and oriented to person place and time. Able to give his own history. Attention concentration normal for the situation. Remote and recent memory intact Speech is fluent without any dysarthria or aphasia noted Cranial nerves: Funduscopic examination was difficult to visualize. Pupils equally round and reactive to light. Extraocular muscles intact without nystagmus. No facial asymmetry noted. Facial sensation intact. Tongue midline. Good palatal elevation. Good shoulder shrug bilaterally. Hearing grossly intact voice. Strength: 5/5 both proximal and distal in all extremities .Tone is normal. Sensation: Grossly intact to light touch in all extremities. Romberg negative Deep tendon reflexes: +1 in bilateral biceps and patellar. Coordination: Patient has good finger to nose without dysmetria. Station within the chair was normal. Able to take a few steps without any instability or ataxia noted Laboratory Results Past 24 Hours: 06/19/17 06:24 Red Blood Count 4.23, Mean Corpuscular Volume 89.8, Mean Corpuscular Hemoglobin 30.3, Mean Corpuscular Hemoglobin Concent 33.7, Mean Platelet Volume 8.9, Neutrophils (%) (Auto) 19.2, Lymphocytes (%) (Auto) 61.2, Monocytes (%) (Auto) 11.5, Eosinophils (%) (Auto) 7.6, Basophils (%) (Auto) 0.4, Neutrophils # (Auto ) 1.42, Lymphocytes # (Auto) 4.52, Monocytes # (Auto) 0.85, Eosinophils # (Auto ) 0.56, Basophils # (Auto) 0.03 06/19/17 06:24 Test 06/18/17 18:00 06/19/17 06:24 Red Blood Cell Morphology Unremarkable Prothrombin Time 9.5 SECONDS (9.0-12.0) Prothromb Time International Ratio 0.9 (0.9-1.1) Activated Partial Thromboplast Time 21.2 SECONDS (21.0-31.0) Partial Thromboplastin Ratio 0.8 Estimated Average Glucose 111 mg/dl Hemoglobin A1c 5.5 % (4.5-5.6) Magnesium Level 1.9 mg/dl (1.8-2.4) Total Bilirubin 0.3 mg/dl (0.2-1) Direct Bilirubin < 0.1 mg/dl (0-0.2) Aspartate Amino Transf (AST/SGOT) 27 U/L (15-37) Alanine Aminotransferase (ALT/SGPT) 32 U/L (12-78) Alkaline Phosphatase 57 U/L (45-117) Total Creatine Kinase 65 U/L (26-192) Creatine Kinase MB 1.6 ng/ml (0.5-3.6) Creatine Kinase MB Ratio 2.5 (0-3.0) Troponin I < 0.015 ng/ml (0-0.045) Total Protein 7.7 gm/dl (6.4-8.2) Albumin 3.4 gm/dl (3.4-5.0) White Blood Count 7.39 K/uL (4.8-10.8) Red Blood Count 4.23 M/uL (4.2-5.4) Hemoglobin 12.8 g/dL (12.0-16.0) Hematocrit 38.0 % (37-47) Mean Corpuscular Volume 89.8 fL (80-100) Mean Corpuscular Hemoglobin 30.3 pg (25-34) Mean Corpuscular Hemoglobin Concent 33.7 g/dl (32-36) Platelet Count 265 K/uL (130-400) Mean Platelet Volume 8.9 fL (7.4-10.4) Neutrophils (%) (Auto) 19.2 % Lymphocytes (%) (Auto) 61.2 % Monocytes (%) (Auto) 11.5 % Eosinophils (%) (Auto) 7.6 % Basophils (%) (Auto) 0.4 % Neutrophils # (Auto) 1.42 K/uL (1.4-6.5) Lymphocytes # (Auto) 4.52 K/uL (1.2-3.4) Monocytes # (Auto) 0.85 K/uL (0.11-0.59) Eosinophils # (Auto) 0.56 K/uL (0-0.5) Basophils # (Auto) 0.03 K/uL (0-0.2) RDW Standard Deviation 45.3 fL (36.4-46.3) RDW Coefficient of Variation 13.9 % (11.5-14.5) Immature Granulocyte % (Auto) 0.1 % Immature Granulocyte # (Auto) 0.01 K/uL (0.00-0.02) Anion Gap 4.0 mmol/L (3-11) Est Creatinine Clear Calc Drug Dose 78.1 ml/min Estimated GFR () 73.8 Estimated GFR (Non- 63.7 BUN/Creatinine Ratio 15.9 (10-20) Calcium Level 9.1 mg/dl (8.5-10.1) Triglycerides Level 196 mg/dl (0-150) Cholesterol Level 198 mg/dl (0-200) HDL Cholesterol 47 mg/dl LDL Cholesterol, Calculated 112 mg/dl VLDL Cholesterol, Calculated 39 mg/dl Cholesterol/HDL Ratio 4.2 Thyroid Stimulating Hormone (TSH) 4.700 uIu/ml (0.300-4.500) Imaging As noted above in history of present illness Impression This is a 66-year-old female who presents with chronic symptoms of vertiginous dizziness and daily headaches with signs of tiny subacute infarcts in the right occipital and left posterior frontal lobe. There is also evidence on MRI of more chronic small vessel disease. Some of her headaches and mild cognitive symptoms could be an association. Otherwise no major neurological deficits on examination. Stroke risk factors identified at this time include mild dyslipidemia. Remicade that the patient takes for Crohn's disease does have some reported side effects of CVAs shortly after infusions. Uncertain if this could be a relationship to her current situation. Plan I have sent off some additional labs to see if the patient could have a hypercoagulable state contributing to a stroke since she does not have a lot of identifiable stroke risk factors. Agree with initiation of Plavix and statin medication for stroke prevention Echo results are pending and will need to be followed up to rule out cardiac embolic sources for stroke. Caution with Fioricet. Recommend not using Fioricet more than 2 days out of the week to avoid rebound headaches. Otherwise may continue with [id number] Tylenol as needed for headaches. Agree with speech evaluation. Recommend outpatient physical therapy evaluation and treatment for dizziness and headaches Follow-up mildly elevated TSH per hospitalist team and primary care. There has been some association with Remicade and strokes after infusion. It may be worth following up with her GI physician to see if they feel that there could be an association and whether her Crohn's disease medication should be changed. Avoid hypotension and dehydration Stroke risk factor modifications and recommendations: Blood pressure recommendations for the first month post hospital discharge 150/ 90-130/80, and after that blood pressure recommendations 130/80-110/70 Total cholesterol goal 100- 200 and LDL goal less than 100 Hemoglobin A1c goal less than 7 Encourage cardiovascular exercise at least 3 times a week for 30 minutes. Follow-up in neurology clinic in 1 month for post stroke hospital follow-up. May consider a Holter monitor as an outpatient to rule out paroxysmal A. fib if no clear identifiable stroke etiology is found If there is any questions or concerns, feel free to call/page me.
--- NOTE | 2017-06-19 12:25 | ECHOCARDIOGRAM REPORT ---
*NOTICE TO RECEIVING CONSTITUTION PARTY AGENCY This information is strictly Confidential and protected under [place] law. [place] law prohibits you from making any further disclosure of this information unless further disclosure is expressly permitted by the written consent of the person to whom it pertains or is authorized by law. A general authorization for the release of medical or other information is not sufficient for this purpose. Hospital accepts no responsibility if the information is made available to any other person, INCLUDING THE PATIENT. Interpretation Summary * Conclusions -- * The left ventricle is normal in size. * There is normal left ventricular wall thickness. * Ejection Fraction = 55-60%. * Left ventricular systolic function is normal. * The left ventricular wall motion is normal. * The right ventricle is normal in size and function. * The right ventricular systolic function is normal as assessed by tricuspid annular plane systolic excursion (TAPSE) (normal >1.5 cm). * Normal LA pressures * Negative Bubble study for right to left shunt * Mildly dilated ascending aorta. * Trivial pericardial effusion * Right ventricular systolic pressure is normal. Procedure Details * A complete two-dimensional transthoracic echocardiogram was performed (2D, M-mode, Doppler and color flow Doppler). * The study was technically adequate. * A saline contrast injection was performed to assess for cardiac shunting. * The injection was performed through an intravenous line in the left arm. * The attending nurse who injected the saline contrast was KONSTANTIN Goldberg. * A total of 10 cc of agitated saline was given. Left Ventricle * The left ventricle is normal in size. * There is normal left ventricular wall thickness. * Ejection Fraction = 55-60%. * Left ventricular systolic function is normal. * The left ventricular wall motion is normal. Right Ventricle * The right ventricle is normal in size and function. * The right ventricular systolic function is normal as assessed by tricuspid annular plane systolic excursion (TAPSE) (normal >1.5 cm). Atria * The left atrial size is normal. * Right atrial size is normal. Mitral Valve * The mitral valve leaflets appear thickened, but open well. * There is trace mitral regurgitation. Tricuspid Valve * The tricuspid valve is not well visualized, but is grossly normal. * There is mild tricuspid regurgitation. * Right ventricular systolic pressure is normal. Aortic Valve * The aortic valve is trileaflet. Pulmonic Valve * The pulmonic valve is not well seen, but is grossly normal. * Mild pulmonic valvular regurgitation. Great Vessels * The aortic root is normal size. * Mildly dilated ascending aorta. Pericardium/Pleural * Trivial pericardial effusion Great Vessels * Normal inferior vena cava size and collapsability with sniff indicates a normal right atrial pressure of 3 mmHg Left Ventricular Diastolic Function * Normal LA pressures Negative Bubble study for right to left shunt MMode 2D Measurements and Calculations IVSd 1.0 cm IVSs 1.5 cm LVIDd 4.0 cm LVIDs 2.7 cm LVPWd 0.97 cm LVPWs 1.2 cm IVS/LVPW 1.1 FS 32.8 % EDV(Teich) 71.6 ml ESV(Teich) 27.4 ml EF(Teich) 61.7 % EDV(cubed) 65.8 ml ESV(cubed) 20.0 ml EF(cubed) 69.6 % % IVS thick 46.6 % % LVPW thick 23.2 % LV mass(C)d 129.3 grams LV mass(C)dI 57.3 grams/m\S\2 LV mass(C)s 116.7 grams LV mass(C)sI 51.7 grams/m\S\2 SV(Teich) 44.2 ml SI(Teich) 19.6 ml/m\S\2 SV(cubed) 45.8 ml SI(cubed) 20.3 ml/m\S\2 EPSS 0.67 cm Ao root diam 3.4 cm Ao root area 8.9 cm\S\2 ACS 1.6 cm LA dimension 3.2 cm asc Aorta Diam 4.0 cm LA/Ao 0.94 LVOT diam 2.0 cm LVOT area 3.3 cm\S\2 LVAd ap4 28.8 cm\S\2 LVLd ap4 9.0 cm EDV(MOD-sp4) 74.9 ml EDV(sp4-el) 78.6 ml LVAs ap4 12.7 cm\S\2 LVLs ap4 6.8 cm ESV(MOD-sp4) 19.7 ml ESV(sp4-el) 20.0 ml EF(MOD-sp4) 73.7 % EF(sp4-el) 74.6 % LVAd ap2 24.8 cm\S\2 LVLd ap2 7.6 cm EDV(MOD-sp2) 66.2 ml EDV(sp2-el) 68.8 ml LVAs ap2 12.4 cm\S\2 LVLs ap2 7.1 cm ESV(MOD-sp2) 18.2 ml ESV(sp2-el) 18.4 ml EF(MOD-sp2) 72.5 % EF(sp2-el) 73.2 % LVLd %diff -18.43 % EDV(MOD-bp) 77.1 ml LVLs %diff 3.3 % ESV(MOD-bp) 19.2 ml EF(MOD-bp) 75.2 % SV(MOD-sp4) 55.2 ml SI(MOD-sp4) 24.5 ml/m\S\2 SV(MOD-sp2) 47.9 ml SI(MOD-sp2) 21.2 ml/m\S\2 SV(MOD-bp) 58.0 ml SI(MOD-bp) 25.7 ml/m\S\2 SV(sp4-el) 58.6 ml SI(sp4-el) 26.0 ml/m\S\2 SV(sp2-el) 50.4 ml SI(sp2-el) 22.3 ml/m\S\2 Doppler Measurements and Calculations MV E max anton 69.7 cm/sec MV A max anton 99.9 cm/sec MV E/A 0.70 MV dec time 0.22 sec Ao V2 max 123.1 cm/sec Ao max PG 6.1 mmHg Ao max PG (full) 2.0 mmHg OBED(V,A) 2.7 cm\S\2 OBED(V,D) 2.7 cm\S\2 LV V1 max PG 4.1 mmHg LV V1 max 100.8 cm/sec PI end-d anton 121.2 cm/sec TR max anton 244.4 cm/sec
[2017-06-19] MEDS ORDERED: LPT40 PO (14:02)
[2017-06-19] MEDS ORDERED: PLV75 PO (14:02)
[2017-06-19] MEDS ORDERED: ASPI81TA28 PO (14:02)
--- NOTE | 2017-06-19 14:19 | Discharge Instructions ---
Discharge Instructions Date of Service Jun 19, 2017. Admission Reason for Admission: CVA Discharge Discharge Diagnosis / Problem: New CVA right occipital lobe and left frontal lobe Discharge Goals Goal(s): Improve function, Improve disease control Activity Recommendations Activity Limitations: resume your previous activity . Instructions / Follow-Up Instructions / Follow-Up Medications: - PLAVIX: antiplatelet shown to reduce risk of future stroke, take once a day - ASPIRIN: 81mg daily, reduces risk of future stroke - LIPITOR: 40mg daily, cholesterol medication to stabilize plaques, lower cholesterol and reduce further stroke risk main adverse effect is muscle pain, discuss with Dr. Ambrose if you experience muscle pains, aches, cramps New findings of stroke on MRI brain: right occipital lobe and left posterior frontal lobe CT angiogram of head and neck showed that carotid arteries are patent and vessels in the head are normal, no aneurysms or other abnormalities echocardiogram of the heart was normal, no atrial septal defect no arrhythmias while on the playground monitor cholesterol was slightly elevated overall and LDL cholesterol was 112 blood pressure has been high at times but also normal at other times, no history of hypertension hypercoagulable blood work sent out, results will be back in about a week, Dr. Wu will have those results treatment will include aspirin and Plavix for antiplatelet effect, Lipitor to lower cholesterol please check your blood pressure once a day for the next week at different times of the day to see if it is elevated at home will defer to Dr. Ambrose as to whether you need blood pressure medications FOLLOW UP - Dr. Ambrose, call her office on Wednesday for follow up this week - Dr. Wu, you should hear from her office about appointment in one month, call if you do not hear from them by Wednesday, - DOMINGO Stevens, call GI office on Wednesday regarding Remicaide and possible correlation with stroke, request appointment in 1-2 weeks - Speech therapy, call [phone] for appointment Risk Factors for Stroke: You can reduce your chances of stroke by working with your medical provider to adopt a healthy lifestyle. Some specific ways to lower your chance of stroke are: * If you are a smoker, now is the time to stop smoking cigarettes * If you are diabetic, improve the control of your blood sugars * Avoid excessive amounts of alcohol * Control high blood pressure * Lose weight if you are overweight * Be sure to lead an active lifestyle * Eat a healthy diet low in salt, cholesterol and fat You should know about other risk factors for stroke that you are unable to control. These include: * Age 55 years or older * Male gender * Certain racial groups: , or / * Family History of Stroke, Mini stroke or Heart Attack * Sickle Cell Disease Follow Up: It is important for you to keep your follow up appointments with your medical provider. Current Hospital Diet Patient's current hospital diet: Regular Diet Discharge Diet Recommended Diet: Low Fat Diet Pending Studies Studies pending at discharge: yes List of pending studies: hypercoagulable studies Laboratory Results Hemoglobin A1c Test 06/18/17 18:00 Range/Units Estimated Average Glucose 111 mg/dl Hemoglobin A1c 5.5 4.5-5.6 % Lipid Panel Test 06/19/17 06:24 Range/Units Triglycerides Level 196 H 0-150 mg/dl Cholesterol Level 198 0-200 mg/dl HDL Cholesterol 47 mg/dl Cholesterol/HDL Ratio 4.2 LDL Cholesterol, Calculated 112 mg/dl Medical Emergencies . Who to Call and When: Medical Emergencies: Call 911 immediately if you experience any of the following warning signs and symptoms of Stroke: * Sudden numbness or weakness of the face, arm or leg, especially on one side of the body * Sudden confusion, trouble speaking or understanding * Sudden trouble seeing in one or both eyes * Sudden trouble walking, dizziness, loss of balance or coordination * Sudden severe headache with no cause Do not delay calling 911 if you experience any warning signs or symptoms of a stroke. Delay in seeking medical attention may affect what treatments can be given to you. . Non-Emergent Contact Non-Emergency issues call your: Primary Care Provider, Neurologist Call Non-Emergent contact if: you have any medication questions . . "Provider Documentation" section prepared by Tanner Babb. . Stroke Core Measures Reason no t-PA for Stroke: Treatment not indicated Reason no antithrom by day 2: Treatment provided - N/A Reason no antithrom at D/C: Treatment provided - N/A Reason no statin at D/C: Treatment provided - N/A Reason no anticoag w/a fib: Treatment not indicated VTE Core Measure Inpt VTE Proph given/why not?: SCD's [place] Drug Monitoring Program Search Results: no issues identified
[2017-06-19 14:25] VITALS: BP 173/92; PULSE 61; TEMP 36.4; O2SAT 96
--- NOTE | 2017-06-19 15:13 | Pharmacy Progress Note ---
Pharmacist Stroke Counseling Date of Service Jun 19, 2017. Scope Pharmacy has been consulted to provide medication discharge counseling for this patient admitted with ischemic stroke/hemorrhagic stroke/ transient ischemic attack as per the Pharmacist Discharge Counseling for Stroke Patients Protocol. Medications on Discharge New Medications: Aspirin (Aspirin Ec) 81 Mg Tab 1 TAB PO DAILY for 30 Days, #30 TABS 3 Refills Atorvastatin (Lipitor) 40 Mg Tab 40 MG PO QAM, #30 TAB 2 Refills Clopidogrel Bisulfate (Clopidogrel) 75 Mg Tab 75 MG PO QAM, #30 TAB 2 Refills Continued Medications: Acetaminophen (Tylenol) 500 Mg Tab 1000 MG PO HS, TAB Acetaminophen (Tylenol Arthritis Ext Rel) 650 Mg Cplt 650-1300 MG PO DAILY PRN for Pain, CAP Xewlgzkrfq-Pewotbvmjdgck-Gdyld (Fioricet) 1 Cap Cap 1-2 TAB PO BID PRN for Headache TAKE 1-2 TABLETS TWICE A DAY PRN. NOT MORE THAN 2 OR 3 DAYS PER WEEK. Calcium Carbonate-Cholecalcife (Calcium/Vitamin D3 600-400 mg-Unit) 1 Tab Tab 1 TAB PO BID Cholecalciferol (Vitamin D 1000 Unit) 1,000 Unit Cap 1000 INTER.UNIT PO BID, CAP Colestipol Hcl (Colestipol Hcl) 1 Gm Tab 1 GM PO BID Cyanocobalamin (Cyanocobalamin) 1,000 Mcg/Ml Inj 1000 MCG IM MONTHLY Famotidine (Pepcid) 20 Mg Tab 20 MG PO HS, TAB Famotidine (Pepcid) 40 Mg Tab 40 MG PO BID, TAB Infliximab (Remicade) 100 Mg/10 Ml Inj 200 MG IV Q 8 WEEKS Lactobacillus Acidophilus (Floranex) 1 Tab Tab 1 TAB PO TIDM, #90 TAB Mesalamine (Asacol Hd) 800 Mg Tab 800 MG PO TID Multiple Vitamins W/ Minerals (Womens One Daily) 1 Tab Tab 1 TAB PO DAILY Probiotic Product (Probiotic) 1 Tab Tab 1 TAB PO BID Action The above medications, specifically ones for stroke treatment/prophylaxis, have been reviewed in detail with the patient and/or patient senior customer service representative(s) prior to discharge. This includes indication, common adverse reactions, drug interactions, and medication administration. Medication counseling has been employed using the teach-back method to ensure understanding. Outcome The patient and/or patient senior customer service representative(s) have demonstrated understanding of the medications. Please note, they are aware that the pharmacist will call them within 72 hours post-discharge to confirm that the appropriate medications are being taken and answer any further medication related questions the patient might have at that time. Contact information Individual to be contacted: Jane Weiss Relationship to patient (if applicable): self Phone number: [phone] Best time to call: morning Additional comments: Thank you for allowing pharmacy to be involved in the care of this patient. Please call [phone] with any additional questions
--- NOTE | 2017-06-20 08:07 | Discharge Summary ---
Discharge Summary Date of Service Jun 19, 2017. Discharge Summary Admission Date: Jun 18, 2017 at 18:38 Discharge Date: Jun 19, 2017 Discharge Disposition: Home Principal Diagnosis: Acute ischemic stroke in right occipital and left frontal Problems/Secondary Diagnoses: Dyslipidemia Elevated blood pressure Crohn's disease Immunizations: Have You Had Influenza Vaccine: No History of Tetanus Vaccine?: No History of Pneumococcal: No History of Hepatitis B Vaccine: No Procedures: Echocardiogram - normal, no PFO CT angiogram head and neck - no stenosis, no aneurysm, intact [place] Consultations: Neurology Speech therapy Medication Reconciliation New Medications: Aspirin (Aspirin Ec) 81 Mg Tab 1 TAB PO DAILY for 30 Days, #30 TABS 3 Refills Atorvastatin (Lipitor) 40 Mg Tab 40 MG PO QAM, #30 TAB 2 Refills Clopidogrel Bisulfate (Clopidogrel) 75 Mg Tab 75 MG PO QAM, #30 TAB 2 Refills Continued Medications: Acetaminophen (Tylenol) 500 Mg Tab 1000 MG PO HS, TAB Acetaminophen (Tylenol Arthritis Ext Rel) 650 Mg Cplt 650-1300 MG PO DAILY PRN for Pain, CAP Ldnsgddxzm-Sbufbbwswgbuc-Pckhp (Fioricet) 1 Cap Cap 1-2 TAB PO BID PRN for Headache TAKE 1-2 TABLETS TWICE A DAY PRN. NOT MORE THAN 2 OR 3 DAYS PER WEEK. Calcium Carbonate-Cholecalcife (Calcium/Vitamin D3 600-400 mg-Unit) 1 Tab Tab 1 TAB PO BID Cholecalciferol (Vitamin D 1000 Unit) 1,000 Unit Cap 1000 INTER.UNIT PO BID, CAP Colestipol Hcl (Colestipol Hcl) 1 Gm Tab 1 GM PO BID Cyanocobalamin (Cyanocobalamin) 1,000 Mcg/Ml Inj 1000 MCG IM MONTHLY Famotidine (Pepcid) 20 Mg Tab 20 MG PO HS, TAB Famotidine (Pepcid) 40 Mg Tab 40 MG PO BID, TAB Infliximab (Remicade) 100 Mg/10 Ml Inj 200 MG IV Q 8 WEEKS Lactobacillus Acidophilus (Floranex) 1 Tab Tab 1 TAB PO TIDM, #90 TAB Mesalamine (Asacol Hd) 800 Mg Tab 800 MG PO TID Multiple Vitamins W/ Minerals (Womens One Daily) 1 Tab Tab 1 TAB PO DAILY Probiotic Product (Probiotic) 1 Tab Tab 1 TAB PO BID Discharge Exam Patient feeling well, no new symptoms since admission. Appreciate consultation from Dr. Wu. Long talk with patient and her family at the bedside regarding her findings of ischemic stroke on MRI. Discussed that our focus now is on determining what caused the stroke and then to decrease her risk factors to have additional strokes. Blood pressure was sporadically elevated, sometimes she had normal readings and other times the systolic was 160-170. She denied every having hypertension as an outpatient. Explained that HTN was a risk for stroke, but not going to start anything in the hospital since she admitted to being under stress with the new diagnosis, will get outpatient follow up. Discussed starting Lipitor, importance of being compliant, warned of muscle aches as potential adverse effect. Discussed Plavix and aspirin, essential to take every day to prevent strokes. Discussed results of echocardiogram and CT angiogram. Answered questions from patient and her family. Discussed Remicade as potential cause of strokes, the patient follows with Cinthya FERRARO. Told her to call for appointment soon to discuss Remicade. Her Crohn's is under great control. Review of Systems: Constitutional: No fever, No chills, No sweats, No weight loss, No weakness , No fatigue, No problem reported Eyes: No worsening of vision, No eye pain, No redness, No discharge, No diplopia, No problem reported ENT: No hearing loss, No unusual epistaxis, No nasal symptoms, No sore throat, No tinnitus, No dental problems, No trouble swallowing, No problem reported Respiratory: No cough, No sputum, No wheezing, No shortness of breath, No dyspnea on exertion, No dyspnea at rest, No hemoptysis, No problem reported Cardiovascular: No chest pain, No orthopnea, No PND, No edema, No claudication, No palpitations, No problem reported Abdomen: No pain, No nausea, No vomiting, No diarrhea, No constipation, No GI bleeding, No problem reported Musculoskeletal: No joint pain, No muscle pain, No swelling, No calf pain, No problem reported Genitourinary - Female: No dysuria, No urinary frequency, No urinary urgency , No urinary incontinence, No urinary retention, No hematuria Neurologic: + memory loss (short term), + problem reported (occasional aphasia), No paralysis, No numbness/tingling, No vertigo, No balance problems Psychiatric: No depression symptoms, No anhedonism, No anxiety, No insomnia , No substance abuse, No problem reported Endocrine: No fatigue, No excessive thirst, No excessive urination, No problem reported Hematologic / Lymphatic: No abnormal bleeding/bruising, No clotting problems , No swollen lymph nodes, No night sweats, No problem reported Integumentary: No rash, No itch, No new/changing skin lesions, No color change, No bleeding, No problem reported Physical Exam: General Appearance: no apparent distress, + obese ENT: normal ENT inspection, hearing grossly normal, pharynx normal Neck: supple, no adenopathy, no JVD, trachea midline Respiratory/Chest: chest non-tender, lungs clear, normal breath sounds, no respiratory distress, no accessory muscle use Cardiovascular: regular rate, rhythm, no edema, no gallop, no JVD, no murmur , normal peripheral pulses Abdomen / GI: normal bowel sounds, non tender, soft, no organomegaly Extremities: normal inspection, no calf tenderness, normal capillary refill , no pedal edema, normal range of motion, pelvis stable 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 She was having symptoms of short term memory loss, aphasia, dizziness but no falls. Outpatient MRI brain showed acute ischemic stroke in right occipital lobe and left posterior frontal lobe, she was sent to the ED for admission. - Acute ischemic stroke, right occipital and left frontal lobe started on aspirin and Plavix for secondary stroke prevention, continue on discharge LDL 112 and total cholesterol slightly high, started on Lipitor 40mg daily appreciate neurology consultation from Dr. Wu ordered hypercoagulable panel that was drawn in hospital, will follow up results discussed that Remicade can be associated with ischemic strokes, patient should see her accounting policy consultant soon echocardiogram showed normal EF, no PFO CT angiogram head and neck was normal no arrhythmias on the monitor HbA1c was 5.5 so no diabetes, patient does not smoke BP sporadically elevated, no true history of hypertension evaluated by speech therapy for aphasia, recommended she continue therapy as outpatient Elevated BP: inconsistent, several measurements were normal no history of elevated pressures in the office asked patient to check her pressures once a day at random times for the next week get her BP checked in the office as well will defer to Dr. Tsarnakova for BP treatment if she is truly found to have hypertension Crohn's disease: stable on Remicade and mesalamine Dr. Wu recommends seeing accounting policy consultant to discuss possible alternatives there can be association of Remicade and ischemic stroke patient going to call [facility] and schedule a follow up soon GERD: continue home meds Total Time Spent: Greater than 30 minutes This includes examination of the patient, discharge planning, medication reconciliation, and communication with other providers. Discharge Instructions Please refer to the electronic Patient Visit Report (Discharge Instructions) for additional information. Follow-Up Dr. Ambrose next week Dr. Wu in one month [facility] in 1-2 weeks speech therapy as outpatient Additional Copies To RV. Bolton MD; Octavia Beck D.O.; Constance Babb C.R.N.P.
--- NOTE | 2017-06-21 10:38 | Pharmacy Progress Note ---
Pharmacist Post D/C Phone Note Date of phone call: Jun 21, 2017. Individual with whom pharmacist spoke to: Jane The following questions were reviewed during the phone call with responses listed below each: Can you tell me the medications that you are currently taking as well as when and how you take each medication? - Jane stated that she takes her plavix and lipitor in the morning along with Asacol, Calcium, MVI, protonix, vitamin D3 and pro omega joint. She is careful to time the cholestyramine for 1 hour after her medication. * She takes another asacol and vitamin D with lunch * Pt takes Asacol with supper * Around 9pm she takes tylenol arthritis, magnesium and pepcid * Around 10 pm she takes another dose of cholestyramine When have you missed any doses of your medications? - She was late in taking her plavix and lipitor yesterday am by a few hours but has not missed any doses. What side effects are you having from your medications? - Pt is not having any side effects What questions do you have about your medications? - Jane asked if her lipitor acted as a binder similar to her cholestyramine as she has been slightly constipated over the past two days. I explained that it is not a binder and should not cause constipation. I explained that a decrease in daily movement, low water intake and reduced fiber intake could cause constipation. What problems are you having obtaining your medications? - Pt was able to pick out hand her medication yesterday morning. She is having no problems obtaining medication. When is your next appointment with your primary care doctor? - She has not yet scheduled an appointment with her primary care doctor but intends on doing so soon. Additional comments: - Jane was appreciative of the phone call and said she was glad I called. I was able to answer the question she had. I provided her our phone number ) in the event that she had more questions. As per the Pharmacist Discharge Counseling for Stroke Patients Protocol, this phone call has been completed within 72 hours of discharge. Thank you for allowing us to be involved in the care of this patient.
[2017-06-24 06:44] LABS: ANTICARDIOLIPID AB IGA <11 APL (< = 11)
== END 2017-06-19 15:06 | disposition home or self-care (01) | DRG 65 ==
LOC: C.EDB 17:35 → C.2E 18:38 → ENRESERV 18:46
PROVIDERS: ADMIT Family Medicine; ATTEND Internal Medicine
DX: I63.9 Cerebral infarction, unspecified (principal); K50.90 Crohn's disease, unspecified, without complications; R47.01 Aphasia; R42 Dizziness and giddiness; R41.3 Other amnesia; R51 Headache; R03.0 Elevated blood-pressure reading, without diagnosis of hypertension; R40.2410 Glasgow coma scale score 13-15, unspecified time; R29.700 NIHSS score 0; E78.5 Hyperlipidemia, unspecified; K21.9 Gastro-esophageal reflux disease without esophagitis; E53.8 Deficiency of other specified B group vitamins; Z79.899 Other long term (current) drug therapy; Z82.49 Family history of ischemic heart disease and other diseases of the circulatory system; Z83.3 Family history of diabetes mellitus

== ENCOUNTER → 2017-06-18 | Outpatient (CLI) | payer OTHER ==
[~2017-06-18] MED LIST changes: +ACET1TAB84 PO; +ASPI81TA28 PO; +CALC-579 PO; +CHOL100027 PO; +COLE1TAB5 PO; +CYNI1000 IM; +FAMO40TA6 PO; +LPT40 PO; +MESA1TAB4 PO; +PLV75 PO; +PROB1TAB16 PO
--- NOTE | 2017-06-18 16:11 | DIAGNOSTIC IMAGING REPORT ---
Brain MRI WITHOUT CONTRAST HISTORY: DIZZINESS, headache,POST CONCUSSION SYNDROME TECHNIQUE: Multiplanar multisequence MRI of the brain was performed without the use of contrast. COMPARISON STUDY: Brain MRI 02/20/2013. FINDINGS: There are 2 punctate foci of restricted diffusion to within the right occipital lobe on image 14 and left posterior frontal lobe on image 19. These are consistent with acute infarcts. There are a few old punctate lacunar infarction within the bilateral cerebellar hemispheres. There is no old small right frontal infarct, unchanged. There is no mass, hematoma, or midline shift. The paranasal sinuses are clear. The mastoid air cells are clear. The ventricles and sulci demonstrate mild age-related involutional changes. Scattered foci of T2 hyperintensity seen within the periventricular and subcortical white matter are nonspecific but suggestive of mild microvascular ischemic changes. The major vascular flow voids at the skull base are well-maintained. IMPRESSION: 1. There are 2 punctate acute infarcts seen within the right occipital lobe and left posterior frontal lobe. 2. Mild microvascular ischemic changes are again noted. Electronically signed by: Rinku Tim M.D. 06/18/2017 4:10 PM Dictated Date/Time: 06/18/2017 4:02 PM
== END | disposition home or self-care (01) ==
LOC: C.MRI 15:19
PROVIDERS: ATTEND Internal Medicine
DX: R42 Dizziness and giddiness (principal); R51 Headache; F07.81 Postconcussional syndrome; R41.89 Other symptoms and signs involving cognitive functions and awareness; I63.9 Cerebral infarction, unspecified; Z87.898 Personal history of other specified conditions

== ENCOUNTER → 2017-07-13 | Outpatient (CLI) | payer OTHER ==
[~2017-07-13] MED LIST changes: +ACET1TAB84 PO; -ASC400 PO; +ASPI81TA28 PO; -ATOR-22 PO; +CALC-579 PO; -CHOL100010 PO; +CHOL100027 PO; -CLS1 PO; -CLTP PO; +COLE1TAB5 PO; -CYAN3INJ IM; +CYNI1000 IM; +FAMO40TA6 PO; +LPT40 PO; +MESA1TAB4 PO; +PLV75 PO; +PROB1TAB16 PO; +RMCI IV
== END | disposition home or self-care (01) ==
LOC: C.MAMM 09:16
PROVIDERS: ATTEND Internal Medicine
DX: E55.9 Vitamin D deficiency, unspecified (principal); Z13.850 Encounter for screening for traumatic brain injury; D89.9 Disorder involving the immune mechanism, unspecified; Z78.0 Asymptomatic menopausal state

== ENCOUNTER → 2017-09-27 | Outpatient (CLI) | payer OTHER ==
[2017-09-27 09:34] LABS: HEMATOCRIT 39.9 % (37-47); HEMOGLOBIN 13.5 g/dL (12.0-16.0); MEAN CELL VOLUME 89.1 fL (80-100); MEAN CORPUSCULAR HEMOGLOBIN 30.1 pg (25-34); MEAN CORPUSCULAR HGB CONC 33.8 g/dl (32-36); MEAN PLATELET VOLUME 9.3 fL (7.4-10.4); PLATELET COUNT 346 K/uL (130-400); RED CELL DISTRIBUTION WIDTH CV 13.1 % (11.5-14.5); RED CELL DISTRIBUTION WIDTH SD 42.6 fL (36.4-46.3); WHITE BLOOD COUNT 5.65 K/uL (4.8-10.8)
[2017-09-27 10:01] LABS: BASO % 0.4 %; BASO ABS # 0.02 K/uL (0-0.2); EOS % 4.8 %; EOS ABS # 0.27 K/uL (0-0.5); IG# 0.01 K/uL (0.00-0.02); LYMPH % 52.2 %; LYMPH ABS # 2.95 K/uL (1.2-3.4); MONO % 10.4 %; MONO ABS # 0.59 K/uL (0.11-0.59); NEUT ABS # 1.81 K/uL (1.4-6.5)
[2017-09-27 10:10] LABS: ALBUMIN 3.4 gm/dl (3.4-5.0); AST/SGOT 32 U/L (15-37); BLOOD UREA NITROGEN 15 mg/dl (7-18); CARBON DIOXIDE 26 mmol/L (21-32); CHOLESTEROL 136 mg/dl (0-200); CREATININE 1.06 mg/dl (0.60-1.20); GLUCOSE 88 mg/dl (70-99); POTASSIUM 3.8 mmol/L (3.5-5.1); SODIUM 141 mmol/L (136-145)
[2017-09-27 10:19] LABS: ALKALINE PHOSPHATASE 58 U/L (45-117); ALT/SGPT 37 U/L (12-78); LDL CHOLESTEROL CALCULATED 58 mg/dl; TOTAL PROTEIN 7.3 gm/dl (6.4-8.2)
== END | disposition home or self-care (01) ==
LOC: C.LAB1850 08:34
PROVIDERS: ATTEND Internal Medicine
DX: E78.5 Hyperlipidemia, unspecified (principal); Z11.59 Encounter for screening for other viral diseases; D51.0 Vitamin B12 deficiency anemia due to intrinsic factor deficiency; E55.9 Vitamin D deficiency, unspecified; K50.90 Crohn's disease, unspecified, without complications

== ENCOUNTER 2018-11-22 12:24 | Observation (INO) ==
[2018-11-22] MEDS ORDERED: ASPIRIN CHEW 324 MG PO STA (13:02)
--- NOTE | 2018-11-22 13:12 | XRay Report ---
XR chest 1V portable HISTORY: 68 years-old Female Chest Pain acute atypical chest pain COMPARISON: Chest radiograph 06/18/2017 TECHNIQUE: Portable AP view of the chest FINDINGS: Cardiomediastinal and hilar silhouettes are within normal limits. No pneumothorax, pleural effusion, focal airspace consolidation or overt pulmonary edema. Bones of the chest appear to be grossly intact . Degenerative changes of the spine. IMPRESSION: No acute process. The above report was generated using voice recognition software. It may contain grammatical, syntax o r spelling errors. Electronically signed by: Booker Cota M.D. 11/22/2018 1:11 PM
[2018-11-22 13:14] LABS: Hematocrit (blood only) 40.5 % (37-47); Hemoglobin 13.7 g/dL (12.0-16.0); Mean Corpuscular Hgb Conc 33.8 g/dL (32-36); Mean Platelet Volume 8.7 fL (7.4-10.4); Platelet Count 323 K/uL (130-400); RDW Coefficient of Variation 14.5 % (11.5-14.5); RDW Standard Deviation 45.4 fL (36.4-46.3); Red Blood Count 4.71 M/uL (4.2-5.4); White Blood Count 11.82 K/uL (4.8-10.8)
[2018-11-22 13:28] LABS: Alanine Aminotransferase 34 U/L (12-78); Albumin Level 3.1 gm/dl (3.4-5.0); Aspartate Aminotransferase 30 U/L (15-37); BUN Creatinine Ratio 13.9 (10-20); Blood Urea Nitrogen 15 mg/dl (7-18); Calcium 9.2 mg/dl (8.5-10.1); Carbon Dioxide 27 mmol/L (21-32); Chloride 103 mmol/L (98-107); Creatinine Clr Calc Pharmacy 65.4 ml/min; Est GFR (African American) 59.5; Est GFR (Non-African American) 51.3; Glucose 82 mg/dl (70-99); Potassium 3.7 mmol/L (3.5-5.1); Sodium 137 mmol/L (136-145)
[2018-11-22 13:32] LABS: Albumin Globulin Ratio 0.8 (0.9-2); Alkaline Phosphatase 46 U/L (45-117); Bilirubin,Total 0.7 mg/dl (0.2-1); Globulin 3.7 gm/dl (2.5-4.0); Total Protein 6.8 gm/dl (6.4-8.2); Troponin I < 0.015 ng/ml (0-0.045)
[2018-11-22 14:15] LABS: Basophils # (auto) 0.03 K/uL (0-0.2); Basophils % (auto) 0.3 %; Eosinophils # (auto) 0.15 K/uL (0-0.5); Eosinophils % (auto) 1.3 %; Immature Granulocytes # (auto) 0.01 K/uL (0.00-0.02); Immature Granulocytes % (auto) 0.1 %; Lymphocytes # (auto) 6.45 K/uL (1.2-3.4); Lymphocytes % (auto) 54.6 %; Monocytes # (auto) 1.49 K/uL (0.11-0.59); Monocytes % (auto) 12.6 %; Neutrophils # (auto) 3.69 K/uL (1.4-6.5); Neutrophils % (auto) 31.1 %
--- NOTE | 2018-11-22 14:24 | Ultrasound Report ---
RIGHT LOWER EXTREMITY VENOUS DOPPLER HISTORY: Right leg pain COMPARISON STUDY: None. FINDINGS: There is normal compressibility, flow, and augmentation within the right lower extremity de ep venous system. Elongated popliteal cyst extending into the right calf measuring up to 15 cm length . IMPRESSION: No DVT within the right lower extremity Electronically signed by: Rinku Tim M.D. 11/22/2018 2:22 PM
--- NOTE | 2018-11-22 14:48 | History & Physical Report ---
Date of Service November 22, 2018 Assessment & Plan (1) Shortness of breath: - Admit to tele for observation for r/o - Trend cardiac biomarkers, initial set was negative, next set drawn at 2000 - EKG reviewed as above - Check 2 D echo - Check a CT PE with her history of shortness of breath and prolonged period of sitting on Wednesday - Doppler of the RLE was completed and negative for DVT, it was not completed for the left. The patient reports that she has chronic bilateral swelling always worse in her right leg compared to the left. She is currently on Plavix for history of CVA. - If negative enzymes can consider a stress test tomorrow morning. - PT/OT consulted - Cardiology consulted for atypical presentation (2) Chest pain: -As above - patient describes it as a heaviness more so than a chest pain (3) Morbid obesity with BMI of 40.0-44.9, adult: - Diet and exercise to be encouraged upon discharge (4) GERD (gastroesophageal reflux disease): -Continue famotidine 40 mg twice daily, continue pantoprazole 40 mg daily (5) HLD (hyperlipidemia): -Continue atorvastatin 40 mg daily, on this medication for CVA medical management (6) Vitamin B12 deficiency: -Noted -Continue supplementation with B12 injection IM monthly (7) Vitamin D deficiency: -Continue vitamin D 2000 units daily (8) History of CVA (cerebrovascular accident): -Occurred May 2018, no residual symptoms -PT/OT consulted -Continue Plavix (9) Pernicious anemia: -Stable on B12 replacement (10) Crohn's disease: -Patient is currently on a 7-week taper of prednisone for acute flare. -Continue home med of prednisone 15 mg starting 11/23/2018 for a week, proceeds to drop 5 mg weekly for 2 more weeks thereafter and then is finished -Patient reports bowels have been slow, denies diarrhea, reports somewhat constipated but attributes this to do poor oral intake in the last week. (11) DVT prophylaxis: -Teds, continue Plavix History of Present Illness Primary Care Provider: Justin Perdomo MD This is a 68-year-old female with past medical history of CVA x2 in May 2018 on Plavix, HLD, morbid obesity with BMI of 40.8, vitamin D deficiency, vitamin B12 deficiency, Crohn's disease currently being treated with prednisone, GERD who presents with acute onset of chest heaviness and shortness of breath. Patient is present here with her today. Patient notes that her chest heaviness appears to be on exertion and started about 1 week ago. The sensation is waxing and waning in nature, lasts for the duration of the activity and then subsides afterwards. Specifically worsens when she walks up a flight of stairs or lifts heavier objects. Initially she believed that this was a form of indigestion. Patient also notes she took her blood pressure several times last week when she felt this way and it was slightly low 80/60 at the lowest, where she typically has a blood pressure of 115/80. Patient admits to poor oral intake and not drink enough fluid in the last week. Patient was traveling in a car for about a 2-hour ride on Wednesday, but denies other prolonged periods of sitting, recent flying on a plane. Allergies Allergy/AdvReac Type Severity Reaction Status Date / Time Penicillins Allergy Verified 11/22/18 13:24 morphine AdvReac Severe HALLUCINATI Verified 11/22/18 13:24 ONS amoxicillin AdvReac Mild DIARRHEA Verified 11/22/18 13:24 clavulanic acid AdvReac Mild DIARRHEA Verified 11/22/18 13:24 Home Medications Home Medications Medication Instructions Recorded Confirmed Type acetaminophen ER 650 mg 650 mg PO UD PRN tab 10/13/18 11/22/18 History tablet,extended release atorvastatin 40 mg tablet 40 mg PO HS #90 tab 10/13/18 11/22/18 History cholecalciferol (vitamin D3) 1,000 2,000 unit PO DAILY cap 10/13/18 11/22/18 History unit capsule colestipol 1 gram tablet 1 g PO BID tab 10/13/18 11/22/18 History pantoprazole 40 mg tablet,delayed 40 mg PO DAILY #90 tab 10/13/18 11/22/18 History release clopidogrel 75 mg tablet 75 mg PO DAILY #90 tab 10/27/18 11/22/18 Rx cyanocobalamin (vit B-12) 1,000 1,000 mcg IM MONTHLY #1 ea 10/27/18 11/22/18 Rx mcg/mL injection kit famotidine 40 mg tablet 40 mg PO BID tab 10/27/18 11/22/18 History melatonin 1 mg tablet 1 mg PO HS PRN 10/27/18 11/22/18 History multivitamin tablet 1 tab PO DAILY 10/27/18 11/22/18 History Past Med/Surg History Medical History Vitamin D deficiency (Acute) Vitamin B12 deficiency (Acute) Thyroid nodule (Acute) Sleep disturbance (Acute) Signs and symptoms involving cognition (Acute) Sensorineural hearing loss (SNHL) of both ears (Acute) Postconcussion syndrome (Acute) Pernicious anemia (Acute) Occipital stroke (Acute) Menopause (Acute) Lymphocytosis (Acute) Lymphadenopathy (Acute) Immunosuppression (Acute) Headache (Acute) Gait instability (Acute) Dizziness (Acute) Crohn's disease (Acute) Cerebral microvascular disease (Acute) Allergic rhinitis (Acute) Abnormal TSH (Acute) TIA (transient ischemic attack) FH: cholecystectomy H/O: hysterectomy Surgical History H/O colonoscopy S/P small bowel resection Family History Mother Diabetes Heart disease Coronary heart disease Acute myocardial infarction Father Pure hypercholesterolemia Grandfather Stroke syndrome Grandmother Breast cancer Social History marital status: Current Living Situation: Spouse current occupational status: retired Feels Safe at Home: Yes Smoking Status: Never smoker Review of Systems Review of Systems: Constitutional: No fever, sweats or chills Eyes: No diplopia, no worsening or blurred vision ENT: normal hearing, no trouble swallowing Respiratory: No cough, no sputum, + dyspnea on exertion as per HPI Cardiovascular: As per HPI, no palpitations. Abdomen: No pain, nausea, vomiting, diarrhea or constipation Musculoskeletal: No joint pain, calf pain, bilateral LE swelling worse in warm weather Neurologic: No weakness, numbness/tingling, or balance problems Psychiatric: No anxiety or depression Skin: No rash or itch Physical Exam Physical Exam: General: awake, alert, no apparent distress, morbidly obese Head: Normocephalic, atraumatic ENT: PERRL, EOMI, no pharyngeal exudate, mucous membranes moist Chest: Chest nontender to palpation, clear to auscultation, on room air, no adventitious breath sounds Cardiac: Regular rate and rhythm, no murmur, no JVD, normal peripheral pulses, good capillary refill Abdominal: NABS x 4 quadrants, soft, nontender to palpation, no rebound, guarding or tenderness Extremities: Normal inspection, no peripheral edema or erythema, calfs nontender to palpation Psych: Normal mood and affect Neuro: AAO x 3, strength intact bilaterally and related 5/5, no motor deficits, speech is clear, no peripheral sensory deficits Skin: no rash or erythema Results & Data Vital Signs (Past 12 Hours) Vital Signs Temp Pulse Pulse Resp BP BP Pulse Ox 11/22/18 14:30 67 14 135/91 98 11/22/18 13:18 70 19 113/70 98 11/22/18 13:17 98 11/22/18 12:31 37.0 C 71 18 136/81 97 Diagnostic Findings RIGHT LOWER EXTREMITY VENOUS DOPPLER HISTORY: Right leg pain COMPARISON STUDY: None. FINDINGS: There is normal compressibility, flow, and augmentation within the right lower extremity deep venous system. Elongated popliteal cyst extending into the right calf measuring up to 15 cm length. IMPRESSION: No DVT within the right lower extremity XR chest 1V portable HISTORY: 68 years-old Female Chest Pain acute atypical chest pain COMPARISON: Chest radiograph 06/18/2017 TECHNIQUE: Portable AP view of the chest FINDINGS: Cardiomediastinal and hilar silhouettes are within normal limits. No pneumothorax, pleural effusion, focal airspace consolidation or overt pulmonary edema. Bones of the chest appear to be grossly intact. Degenerative changes of the spine. IMPRESSION: No acute process. Supervising Physician Co-Signing Physician Notes PA Physician Supervision Note: I interviewed and examined the patient. Discussed with Marissa AGEE and agree with findings and plan as documented in the note. Any exceptions or clarifications are listed here: None Patient was independently seen and examined in the ER she was comfortable she did relate the story of having leg swelling and tightness with some calf pain and thigh pain over the weekend she then says she felt immediately horrible all at once which could be due to pulmonary embolism. We will pursue CT angiogram and if that is negative we will pursue cardiac work-up and was positive we will treat with formal full anticoagulation. Vital signs are stable Heart is regular lungs are clear extremities are bilaterally with trace to 1+ edema the right leg is slightly worse than the left there is no cords but there is positive Homans sign Evaluate for venous thromboembolism and if negative cardiac rule out protocol Documented By: Skinny Lopez PG Care Time/CCT Total # of Minutes Spent Total Time Spent with Patient: Total time spent is greater than 50% in coordination of care (as documented) at patient's floor/unit and/or counseling patient: (1) Chest pain Chest pain type: unspecified Qualified Code(s): R07.9 - Chest pain, unspecified
[2018-11-22] MEDS ORDERED: NON-FORMULARY MEDICATION (Acetaminophen 650 MG) PO PRN (16:27)
[2018-11-22] MEDS ORDERED: NON-FORMULARY MEDICATION (Cyanocobalamin (Vitamin B-12) 1,000 MCG) IM SCH (16:27)
[2018-11-22] MEDS ORDERED: NON-FORMULARY MEDICATION (Melatonin 1 MG) PO PRN (16:27)
[2018-11-22] MEDS ORDERED: ONDANSETRON INJ 2 MG/ML 2 ML VIAL IV PRN (16:27)
[2018-11-22] MEDS ORDERED: ACETAMINOPHEN 325 MG TAB PO PRN (16:27)
[2018-11-22] MEDS ORDERED: OPTIRAY 320 125ml IV PRN (19:12)
--- NOTE | 2018-11-22 19:19 | CT Scan Report ---
CT angio chest PE protocol CT DOSE: 849.48 mGy.cm HISTORY: Dyspnea PE TECHNIQUE: Multiaxial CT images of the chest were performed following the intravenous administration of contrast to evaluate the pulmonary arteries. Maximal intensity projection images were also obtaine d. A dose lowering technique was utilized adhering to the principles of ALARA. COMPARISON STUDY: None. FINDINGS: There is a normal caliber thoracic aorta with no evidence for dissection. There is no evide nce for pulmonary embolus. No pleural effusions. No pneumothorax. The liver and spleen are unremarkab le. No mediastinal or hilar lymphadenopathy. The central airways are patent. The lungs are clear. IMPRESSION: No evidence for pulmonary embolus. The lungs are clear The above report was generated using voice recognition software. It may contain grammatical, syntax or spelling errors. Electronically signed by: Sahdi Quintana M.D. 11/22/2018 7:18 PM
--- NOTE | 2018-11-22 19:47 | Emergency Department Note ---
Entered by Aurea Echevarria acting as a scribe for History of Present Illness General Chief complaint: Chest Pain Stated complaint: HEAVY CHEST - A FIB Source: patient History of Present Illness Onset (ago): hour(s) (11) Location: chest Pain Consistency: + other (persistent) Maximum Pain Intensity: 4 Quality: + other (heaviness) Relieved By: + rest Exacerbated By: + movement (exertion) Associated symptoms: + denies other symptoms (arm pain, jaw pain, rhinorrhea, abdominal pain), + diaphoresis, + shortness of breath and + other (right leg swelling); no cough, no fever/chills (fever) and no nausea/vomiting (nausea) The patient is a 68 year old female who presents to the ED with complaints of persistent chest pain starting 11 hours ago. The patient states that she went to bed last night and felt fine. She reports that 11 hours ago she was awoken from sleep with a heaviness in the center of her chest. She states that she tried to go back to sleep, but couldnt for 3 hours. She reports that when she finally wa s able to she didnt sleep well. She states that when she got up she thought it was gone, but as soon as she started walking, the pain came back. She notes that it wasnt as bad as it was earlier. The patient states that the exertion makes the pain worse and rest makes it better. The patient complains of diaphoresis, right leg swelling 2 days ago, and shortness of breath for the past week when she walks. She notes that she is currently taking Prednisone for a Crohns flare. The patient denies arm pain, jaw pain, nausea, fever, cough, rhinorrhea, abdominal pain, ever having this pain before, taking an Aspirin, ever having a stress test, a history of diabetes, a history of hypertension, a history of heart disease, and ever being a smoker. Home Medications Home Medications Medication Instructions Recorded Confirmed Type acetaminophen ER 650 mg 650 mg PO UD PRN tab 10/13/18 11/22/18 History tablet,extended release atorvastatin 40 mg tablet 40 mg PO HS #90 tab 10/13/18 11/22/18 History cholecalciferol (vitamin D3) 1,000 2,000 unit PO DAILY cap 10/13/18 11/22/18 History unit capsule colestipol 1 gram tablet 1 g PO BID tab 10/13/18 11/22/18 History pantoprazole 40 mg tablet,delayed 40 mg PO DAILY #90 tab 10/13/18 11/22/18 History release clopidogrel 75 mg tablet 75 mg PO DAILY #90 tab 10/27/18 11/22/18 Rx cyanocobalamin (vit B-12) 1,000 1,000 mcg IM MONTHLY #1 ea 10/27/18 11/22/18 Rx mcg/mL injection kit famotidine 40 mg tablet 40 mg PO BID tab 10/27/18 11/22/18 History melatonin 1 mg tablet 1 mg PO HS PRN 10/27/18 11/22/18 History multivitamin tablet 1 tab PO DAILY 10/27/18 11/22/18 History Allergies Allergy/AdvReac Type Severity Reaction Status Date / Time Penicillins Allergy Verified 11/22/18 13:24 morphine AdvReac Severe HALLUCINATI Verified 11/22/18 13:24 ONS amoxicillin AdvReac Mild DIARRHEA Verified 11/22/18 13:24 clavulanic acid AdvReac Mild DIARRHEA Verified 11/22/18 13:24 Past Med/Surg History Medical History Vitamin D deficiency (Acute) Vitamin B12 deficiency (Acute) Thyroid nodule (Acute) Sleep disturbance (Acute) Signs and symptoms involving cognition (Acute) Sensorineural hearing loss (SNHL) of both ears (Acute) Postconcussion syndrome (Acute) Pernicious anemia (Acute) Occipital stroke (Acute) Menopause (Acute) Lymphocytosis (Acute) Lymphadenopathy (Acute) Immunosuppression (Acute) Headache (Acute) Gait instability (Acute) Dizziness (Acute) Crohn's disease (Acute) Cerebral microvascular disease (Acute) Allergic rhinitis (Acute) Abnormal TSH (Acute) TIA (transient ischemic attack) FH: cholecystectomy H/O: hysterectomy Surgical History H/O colonoscopy S/P small bowel resection Family History Mother Diabetes Heart disease Coronary heart disease Acute myocardial infarction Father Pure hypercholesterolemia Grandfather Stroke syndrome Grandmother Breast cancer Social History Preferred Language: Jamaican Beliefs That Will Affect Care: None marital status: Current Living Situation: Spouse current occupational status: retired Other Information That Helps Us Care for You: No Feels Safe at Home: Yes Safety Concerns: Feels Safe At This Time Smoking Status: Never smoker Do You Dip or Chew Tobacco: No Second Hand Exposure: Yes (50+ years ago) Hx Alcohol Use: No Hx Substance Use: No Review of Systems See HPI for pertinent positives & negatives. and A total of 10 systems reviewed and were otherwise negative Physical Exam Vital Signs Vital Signs - 24 hr 11/22/18 12:31 11/22/18 13:17 11/22/18 13:18 Temperature 37.0 C Temperature Source Oral Sepsis Recent Fever Within 48 Hours No Sepsis New/Unexplained Change in Mental Status No Sepsis Action Taken by Nursing No Action Required Pulse Rate 71 Pulse Rate [Left Finger] 70 Pulse Rhythm [Left Finger] Regular Respiratory Rate 18 19 Respiratory Effort / Characteristics Non-Labored Respiratory Depth Normal Normal Respiratory Pattern Regular Blood Pressure 136/81 Blood Pressure [Left Arm] 113/70 Blood Pressure Mean 99 Blood Pressure Mean [Left Arm] 84 Pulse Oximetry 97 98 98 Oxygen Delivery Method Room Air Room Air Room Air 11/22/18 14:30 Temperature Temperature Source Sepsis Recent Fever Within 48 Hours Sepsis New/Unexplained Change in Mental Status Sepsis Action Taken by Nursing Pulse Rate Pulse Rate [Left Finger] 67 Pulse Rhythm [Left Finger] Respiratory Rate 14 Respiratory Effort / Characteristics Non-Labored Respiratory Depth Normal Respiratory Pattern Regular Blood Pressure Blood Pressure [Left Arm] 135/91 Blood Pressure Mean Blood Pressure Mean [Left Arm] 105 Pulse Oximetry 98 Oxygen Delivery Method Room Air GENERAL: obese, sitting up in bed, no acute distress, nontoxic EYE EXAM: normal conjunctiva, PERRL and EOM's grossly intact OROPHARYNX: no exudate, no erythema, lips, buccal mucosa, and tongue normal and mucous membranes are moist NECK: supple, no nuchal rigidity, no adenopathy, non-tender LUNGS: Clear to auscultation. Normal chest wall mechanics HEART: no murmurs, S1 normal and S2 normal ABDOMEN: abdomen soft, non-tender, normo-active bowel sounds, no masses, no rebound or guarding. BACK: Back is symmetrical on inspection and there is no deformity, no midline tenderness, no CVA tenderness. SKIN: no rashes and no bruising UPPER EXTREMITIES: upper extremities are grossly normal. LOWER EXTREMITIES: No pitting edema. Calves are equal bilaterally. NEURO EXAM: Normal sensorium, cranial nerves II-XII grossly intact, normal speech, no gross weakness of arms, no gross weakness of legs. Course ED COURSE: Vital signs were reviewed and showed that they were normal. The patients medical record was reviewed The above diagnostic studies were performed and reviewed. ED treatments and interventions as stated above. 1254: The patient was evaluated in room A10. A complete history and physical examination was performed. 1430: Upon reevaluation, the patient is resting comfortably and pain free. I discussed my findings with the patient and she understands and agrees with the treatment plan. Based on the patients age, coexisting illnesses, exam and lab findings the decision to treat as an inpatient was made. The patient remained stable while under my care. The patient will be evaluated for further management. 1434: I discussed the patient's case with Dr. Rina FALCON Hospitalist. He will evaluate the patient for further management. Consultations Consultation #1: I discussed the patient's case with Dr. Rina FALCON Hospitalist. He will evaluate the patient for further management. Time: 14:34 Administered Medications Ioversol (Optiray 320 125ml) 116 ml IV ONCE PRN PRN Reason: Interaction Checking Stop: 11/26/18 19:11 Last Admin: 11/22/18 19:13 Dose: 116 ml Documented by: [id number] Discontinued Medications Aspirin (Aspirin) 324 mg PO NOW STA Stop: 11/22/18 13:03 Last Admin: 11/22/18 13:19 Dose: 324 mg Documented by: [id number] Medical Decision Making Differential Diagnosis Differential diagnoses includes but is not limited to acute coronary syndrome, myocardial infarction, pericarditis, pulmonary embolus, aortic dissection, pneumonia, pneumothorax, musculoskeletal, shingles, esophageal. Medical Records Attestation: I reviewed the patient's medical records. Home Medications Current Medication List: was personally reviewed by me Laboratory Data Attestation: I reviewed the patient's lab results. Result diagrams: 11/22/18 12:54 11/22/18 12:54 Lab Results 11/22/18 11/22/18 11/22/18 Range/Units 12:54 12:54 12:54 WBC 11.82 H (4.8-10.8) K/uL RBC 4.71 (4.2-5.4) M/uL Hgb 13.7 (12.0-16.0) g/dL Hct 40.5 (37-47) % MCV 86.0 (80-100) fL MCH 29.1 (25-34) pg MCHC 33.8 (32-36) g/dL RDW Std Deviation 45.4 (36.4-46.3) fL RDW Coeff of Srikanth 14.5 (11.5-14.5) % Plt Count 323 (130-400) K/uL MPV 8.7 (7.4-10.4) fL Immature Gran % (Auto) 0.1 % Neut % (Auto) 31.1 % Lymph % (Auto) 54.6 % [place] % (Auto) 12.6 % Eos % (Auto) 1.3 % Baso % (Auto) 0.3 % Immature Gran # (Auto) 0.01 (0.00-0.02) K/uL Neut # (Auto) 3.69 (1.4-6.5) K/uL Lymph # (Auto) 6.45 H (1.2-3.4) K/uL [place] # (Auto) 1.49 H (0.11-0.59) K/uL Eos # (Auto) 0.15 (0-0.5) K/uL Baso # (Auto) 0.03 (0-0.2) K/uL Blood Smear Review Sodium 137 (136-145) mmol/L Potassium 3.7 (3.5-5.1) mmol/L Chloride 103 (98-107) mmol/L Carbon Dioxide 27 (21-32) mmol/L Anion Gap 7.0 (3-11) BUN 15 (7-18) mg/dl Creatinine 1.11 (0.6-1.2) mg/dl Est Cr Clr Drug Dosing 65.4 ml/min Est GFR ( Amer) 59.5 Est GFR (Non-Af Amer) 51.3 BUN/Creatinine Ratio 13.9 (10-20) Glucose 82 (70-99) mg/dl Calcium 9.2 (8.5-10.1) mg/dl Total Bilirubin 0.7 (0.2-1) mg/dl AST 30 (15-37) U/L ALT 34 (12-78) U/L Alkaline Phosphatase 46 (45-117) U/L Troponin I < 0.015 (0-0.045) ng/ml Total Protein 6.8 (6.4-8.2) gm/dl Albumin 3.1 L (3.4-5.0) gm/dl Globulin 3.7 (2.5-4.0) gm/dl Albumin/Globulin Ratio 0.8 L (0.9-2) Lipase 158 (73-393) U/L Specimen Hemolysis Hepatitis C Ab Screen Neg (Neg) Imaging Data Radiologist's Impression: Radiology results as stated below per my review and the radiologist's interpretation: XR chest 1V portable HISTORY: 68 years-old Female Chest Pain acute atypical chest pain COMPARISON: Chest radiograph 06/18/2017 TECHNIQUE: Portable AP view of the chest FINDINGS: Cardiomediastinal and hilar silhouettes are within normal limits. No pneumothorax, pleural effusion, focal airspace consolidation or overt pulmonary edema. Bones of the chest appear to be grossly intact. Degenerative changes of the spine. IMPRESSION: No acute process. The above report was generated using voice recognition software. It may contain grammatical, syntax or spelling errors. Electronically signed by: Booker Cota M.D. 11/22/2018 1:11 PM RIGHT LOWER EXTREMITY VENOUS DOPPLER HISTORY: Right leg pain COMPARISON STUDY: None. FINDINGS: There is normal compressibility, flow, and augmentation within the right lower extremity deep venous system. Elongated popliteal cyst extending into the right calf measuring up to 15 cm length. IMPRESSION: No DVT within the right lower extremity Electronically signed by: Rinku Tim M.D. 11/22/2018 2:22 PM ECG Data Attestation: I personally reviewed and interpreted this ECG as follows: Indication: chest pain Rate (beats per minute): 80 Rhythm: sinus rhythm Findings: + other (normal axis) and + PAC; no PVC Blood Pressure Blood Pressure Findings: Normal blood pressure Blood Pressure Disposition: did not require urgent referral MDM Narrative Patient is a 68-year-old female who presents the ER for midsternal chest pain which started in the past 24 hours. Patient has been having shortness of breath which is been present for the past week only with exertion. IV was established blood work was obtained. Labs show no significant leukocytosis or anemia. BMP along with LFTs bilirubin troponin was negative. Lipase was normal. Duplex of the right lower extremity was negative. Chest x-ray unremarkable. EKG was nondiagnostic. Patient was completely chest pain-free. She was given aspirin. Discussed with the hospitalist for observation. Impression & Plan Chest pain, Shortness of breath Discharge Plan Visit Data *Final* Discharge Date/Time: 11/22/18 15:53 Chief Complaint: Chest Pain Stated Complaint: HEAVY CHEST - A FIB ED Provider: Hoang Duke Discharge Problem: Chest pain, Shortness of breath Patient Disposition: Admitted As Inpatient Discharge Instructions Interventions: ED Discharge Assessment Last Done: 11/22/18 15:53 Discharge Problem: Chest pain Qualifiers: Chest pain type: unspecified Qualified Code(s): R07.9 - Chest pain, unspecified The scribe's documentation has been prepared under my direction and personally reviewed by me in its entirety. I confirm that the note above accurately reflects all work, treatment, procedures, and medical decision making performed by me.
[2018-11-22] MEDS: FAMOTIDINE 20 MG TAB PO SCH (20:46)
[2018-11-22] MEDS ORDERED: ATORVASTATIN 40 MG TAB PO SCH (21:00)
[2018-11-22] MEDS: COLESTIPOL HCL 1 GM TAB PO SCH (22:03)
[2018-11-23 04:13] LABS: Hematocrit (blood only) 37.9 % (37-47); Hemoglobin 12.8 g/dL (12.0-16.0); Mean Corpuscular Hgb Conc 33.8 g/dL (32-36); Mean Corpuscular Volume 86.1 fL (80-100); Mean Platelet Volume 8.5 fL (7.4-10.4); Platelet Count 305 K/uL (130-400); RDW Coefficient of Variation 14.7 % (11.5-14.5); RDW Standard Deviation 46.1 fL (36.4-46.3); White Blood Count 9.18 K/uL (4.8-10.8)
[2018-11-23 04:31] LABS: Alanine Aminotransferase 31 U/L (12-78); Albumin Level 2.8 gm/dl (3.4-5.0); Aspartate Aminotransferase 19 U/L (15-37); BUN Creatinine Ratio 11.8 (10-20); Blood Urea Nitrogen 12 mg/dl (7-18); Calcium 8.6 mg/dl (8.5-10.1); Carbon Dioxide 27 mmol/L (21-32); Chloride 107 mmol/L (98-107); Creatinine Clr Calc Pharmacy 117.9 ml/min; Est GFR (African American) 65.1; Est GFR (Non-African American) 56.2; Glucose 75 mg/dl (70-99); Potassium 3.9 mmol/L (3.5-5.1); Sodium 141 mmol/L (136-145)
[2018-11-23 04:35] LABS: Albumin Globulin Ratio 0.9 (0.9-2); Alkaline Phosphatase 45 U/L (45-117); Bilirubin,Total 0.7 mg/dl (0.2-1); Globulin 3.1 gm/dl (2.5-4.0); Total Protein 5.9 gm/dl (6.4-8.2); Troponin I < 0.015 ng/ml (0-0.045)
[2018-11-23] MEDS ORDERED: PERFLUTREN LIPID MICROSPHERE (DEFINITY) IV ONE (07:24)
[2018-11-23] MEDS: FAMOTIDINE 20 MG TAB PO SCH (07:51)
--- NOTE | 2018-11-23 08:45 | Cardiology Consultation ---
Date of Consultation November 23, 2018 Assessment & Plan (1) Chest pain: 2. Exertional dyspnea 3. History of CVA 4. Possible atrial fibrillation Discussed with Dr. Toribio. Patient without history of coronary artery disease admitted with chest heaviness and shortness of breath. Serial cardiac enzymes are negative, EKG without acute changes and echo with normal LV function and wall motion. On exam she appears well perfused without signs of heart failure. She is currently chest pain free. Has noted decreased exercise tolerance and exertional dyspnea over past week. Recommend further risk stratification with stress echo. She had palpitations and sensation of heart racing with her chest pain. Symptoms may also be secondary to arrhythmia given her history of possible atrial fibrillation and embolic CVA. No events on telemetry. Will plan on loop recorder implantation. Supervising Physician Co-Signing Physician Notes Patient seen and examined with Melissa. Agree with above. Stress echo done: Poor exercise tolerance, no ischemia on preliminary review. No arrhythmia. Will plan Loop implant today, I discussed the indications, procedure, risks and alternatives and she understands and agrees to proceed. Prefers no sedtion. History of Present Illness Reason for Consultation: Chest pain Attending Physician: Marissa Muse MD History of Present Illness Mrs. Weiss is a 68 year old female with a medical history significant for hist ory of CVA, hypertension, GERD, dyslipidemia, Crohn disease status post colectomy. She was admitted on 11/22/18 with chest pain and shortness of breath. She has no history of coronary artery disease. She woke up around 2 am yesterday morning with central chest heaviness and burning. She had associated shortness of breath, mild diaphoresis and palpitations she describes as her heart "dancing." Her symptoms lasted until about 5 am until she was able to go back to sleep. When she woke up her symptoms had improved but worsed with exertion prompting her to seek medical attention. By the time she presented to the ED her symptoms had resolved for the most part. Over the past week she has experienced exertional dyspnea and decreased exercise tolerance. She typically walks her dog about 2 miles per day without symptoms. Now she had exertional dyspnea and has had to significantly decrease her pace. She also notes feeling extremely tired after exercise which is unusual for her. No shortness of breath at rest, orthopnea or PND. She has lightheadedness with working in her garden, no presyncope or syncope. Aside from the palpitations associated with her chest pain no other recent palpitations. She notes some swelling of her right leg which developed several days ago after she went on a 2 hour car ride. No calf pain or erythema. Venous duplex negative for DVT and CTA without evidence of PE. She is currently chest pain free. Serial cardiac enzymes have been negative and EKG without acute changes. Social History: and lives with . 2 children. Retired. No tobacco, alcohol or drug use. Medical history: 1. History of CVA-- on Plavix, felt to possibly be secondary to atrial fibrilaltion 2. Crohn's disease-- status post partial colectomy, on remicade 3. Dyslipidemia 4. GERD Family History: Father living at 90. Mother with ME in 60s. Brother with ME and CABG in 60s. Maternal grandfather ME in 50s. Allergies Allergy/AdvReac Type Severity Reaction Status Date / Time Penicillins Allergy Verified 11/22/18 13:24 morphine AdvReac Severe HALLUCINATI Verified 11/22/18 13:24 ONS amoxicillin AdvReac Mild DIARRHEA Verified 11/22/18 13:24 clavulanic acid AdvReac Mild DIARRHEA Verified 11/22/18 13:24 Home Medications Home Medications Medication Instructions Recorded Confirmed Type acetaminophen ER 650 mg 650 mg PO UD PRN tab 10/13/18 11/22/18 History tablet,extended release atorvastatin 40 mg tablet 40 mg PO HS #90 tab 10/13/18 11/22/18 History cholecalciferol (vitamin D3) 1,000 2,000 unit PO DAILY cap 10/13/18 11/22/18 History unit capsule colestipol 1 gram tablet 1 g PO BID tab 10/13/18 11/22/18 History pantoprazole 40 mg tablet,delayed 40 mg PO DAILY #90 tab 10/13/18 11/22/18 History release clopidogrel 75 mg tablet 75 mg PO DAILY #90 tab 10/27/18 11/22/18 Rx cyanocobalamin (vit B-12) 1,000 1,000 mcg IM MONTHLY #1 ea 10/27/18 11/22/18 Rx mcg/mL injection kit famotidine 40 mg tablet 40 mg PO BID tab 10/27/18 11/22/18 History melatonin 1 mg tablet 1 mg PO HS PRN 10/27/18 11/22/18 History multivitamin tablet 1 tab PO DAILY 10/27/18 11/22/18 History Patient History Medical History Vitamin D deficiency (Acute) Vitamin B12 deficiency (Acute) Thyroid nodule (Acute) Sleep disturbance (Acute) Signs and symptoms involving cognition (Acute) Sensorineural hearing loss (SNHL) of both ears (Acute) Postconcussion syndrome (Acute) Pernicious anemia (Acute) Occipital stroke (Acute) Menopause (Acute) Lymphocytosis (Acute) Lymphadenopathy (Acute) Immunosuppression (Acute) Headache (Acute) Gait instability (Acute) Dizziness (Acute) Crohn's disease (Acute) Cerebral microvascular disease (Acute) Allergic rhinitis (Acute) Abnormal TSH (Acute) TIA (transient ischemic attack) FH: cholecystectomy H/O: hysterectomy Surgical History H/O colonoscopy S/P small bowel resection Family History Mother Diabetes Heart disease Coronary heart disease Acute myocardial infarction Father Pure hypercholesterolemia Grandfather Stroke syndrome Grandmother Breast cancer Social History Preferred Language: German Beliefs That Will Affect Care: None marital status: Current Living Situation: Spouse current occupational status: retired Other Information That Helps Us Care for You: No Feels Safe at Home: Yes Safety Concerns: Feels Safe At This Time Smoking Status: Never smoker Do You Dip or Chew Tobacco: No Second Hand Exposure: Yes (50+ years ago) Hx Alcohol Use: No Hx Substance Use: No Review of Systems Review of Systems: All systems reviewed & are unremarkable except as noted in HPI & below Physical Exam Physical Exam: General: No acute distress, comfortable. HEENT: Head is normal. PERRLA. EOMI. Sclerae anicteric. Ears, nose and throat unremarkable. Mucous membranes moist. Neck: Normal carotid upstrokes, no bruits. No appreciable JVD. Lungs: Clear to auscultation bilaterally without rales, rhonchi or wheezes. Cardiac: Regular rate and rhythm. S1-S2 normal. No appreciable murmur, gallop or rub. Abdomen: Soft and nontender. Bowel sounds normal. No mass or organomegaly. No abdominal bruit. Extremities/vascular: -- Well perfused. Trace pretibial edema greater on the right --Radial, DP and PT pulses 2+ bilaterally Skin: No rash or abnormal lesions. Normal turgor. Neurologic: Nonfocal Psychiatric: Affect appropriate. Alert and oriented. Results & Data Vital Signs (Past 12 Hours) Vital Signs Temp Pulse Pulse Resp BP Pulse Ox 11/23/18 08:01 95 H 11/23/18 07:44 36.7 C 71 18 110/74 97 11/23/18 03:15 36.9 C 76 16 112/74 97 11/23/18 00:00 70 11/22/18 23:34 36.8 C 69 15 100/67 97 Laboratory Results Laboratory Results - last 24 hr 11/22/18 11/22/18 11/22/18 12:54 12:54 12:54 WBC 11.82 H RBC 4.71 Hgb 13.7 Hct 40.5 MCV 86.0 MCH 29.1 MCHC 33.8 RDW Std Deviation 45.4 RDW Coeff of Srikanth 14.5 Plt Count 323 MPV 8.7 Immature Gran % (Auto) 0.1 Neut % (Auto) 31.1 Lymph % (Auto) 54.6 [place] % (Auto) 12.6 Eos % (Auto) 1.3 Baso % (Auto) 0.3 Immature Gran # (Auto) 0.01 Neut # (Auto) 3.69 Lymph # (Auto) 6.45 H [place] # (Auto) 1.49 H Eos # (Auto) 0.15 Baso # (Auto) 0.03 Blood Smear Review Sodium 137 Potassium 3.7 Chloride 103 Carbon Dioxide 27 Anion Gap 7.0 BUN 15 Creatinine 1.11 Est Cr Clr Drug Dosing 65.4 Est GFR ( Amer) 59.5 Est GFR (Non-Af Amer) 51.3 BUN/Creatinine Ratio 13.9 Glucose 82 Calcium 9.2 Total Bilirubin 0.7 AST 30 ALT 34 Alkaline Phosphatase 46 Troponin I < 0.015 Total Protein 6.8 Albumin 3.1 L Globulin 3.7 Albumin/Globulin Ratio 0.8 L Lipase 158 Specimen Hemolysis Hepatitis C Ab Screen Neg 11/22/18 11/23/18 11/23/18 19:45 04:00 04:00 WBC 9.18 RBC 4.40 Hgb 12.8 Hct 37.9 MCV 86.1 MCH 29.1 MCHC 33.8 RDW Std Deviation 46.1 RDW Coeff of Srikanth 14.7 H Plt Count 305 MPV 8.5 Immature Gran % (Auto) Neut % (Auto) Lymph % (Auto) [place] % (Auto) Eos % (Auto) Baso % (Auto) Immature Gran # (Auto) Neut # (Auto) Lymph # (Auto) [place] # (Auto) Eos # (Auto) Baso # (Auto) Blood Smear Review Sodium 141 Potassium 3.9 Chloride 107 Carbon Dioxide 27 Anion Gap 7.0 BUN 12 Creatinine 1.03 Est Cr Clr Drug Dosing 117.9 Est GFR ( Amer) 65.1 Est GFR (Non-Af Amer) 56.2 BUN/Creatinine Ratio 11.8 Glucose 75 Calcium 8.6 Total Bilirubin 0.7 AST 19 ALT 31 Alkaline Phosphatase 45 Troponin I < 0.015 < 0.015 Total Protein 5.9 L Albumin 2.8 L Globulin 3.1 Albumin/Globulin Ratio 0.9 Lipase Specimen Hemolysis Hepatitis C Ab Screen Diagnostic Findings Echo-- normal LV systolic function. Normal wall motion. Grade I diastolic dysfunction. CTA-- no PE or dissection Lower extremity duplex-- no DVT ECG Additional Comments: EKG--Sinus rhythm with PACs, no acute changes Telemetry reviewed-- sinus rhythm (1) Chest pain Chest pain type: unspecified Qualified Code(s): R07.9 - Chest pain, unspecified
[2018-11-23] MEDS ORDERED: CHOLECALCIFEROL 1,000 UNITS TAB PO SCH (09:00)
[2018-11-23] MEDS ORDERED: predniSONE 10 MG TABLET PO SCH (09:00)
[2018-11-23] MEDS ORDERED: CLOPIDOGREL BISULFATE 75 MG TAB PO SCH (09:00)
[2018-11-23] MEDS ORDERED: MULTIVITAMIN TAB PO SCH (09:00)
[2018-11-23] MEDS ORDERED: PANTOprazole 40 MG TAB PO SCH (09:00)
[2018-11-23] MEDS: COLESTIPOL HCL 1 GM TAB PO SCH (09:48)
[2018-11-23] MEDS ORDERED: LIDOCAINE HCL 1% 20 ML VIAL ONE (12:05)
[2018-11-23] MEDS ORDERED: CLINDAMYCIN 600 MG in DEXTROSE 5% 50 ML IV ONE (12:08)
[2018-11-23] MEDS ORDERED: LACTATED RINGER'S 1,000 ML IV SCH (12:15)
[2018-11-23] MEDS ORDERED: BACITRACIN OINT 0.9 GM PKT ONE (12:38)
--- NOTE | 2018-11-23 12:51 | Operative Report ---
Post Operative Report Pre & Post Diagnosis Operation Date: 11/23/18 12:00 Preoperative diagnosis: Cryptogenic stroke, palpitations Postoperative diagnosis: Same Procedure Operation Date: 11/23/18 12:00 <No data on this case meets the specified criteria> Operation Date: 11/23/18 12:00 Actual Procedures p Implant Cardiac Event Recorder - Braxton Toribio MD Surgeon Braxton Toribio MD Area Safety Manager None Estimated Blood Loss 2 Findings Consistent with Post-Op Diagnosis Specimens None Anesthesia Type Local Complications none Disposition Accompanied Patient To Recovery: No Disposition: PCU Description of Procedure After obtaining informed consent for the procedure, the patient was brought to the laboratory having had nothing by mouth after midnight. The patient was prepped and draped in the standard sterile manner for a loop recorder implantation. An area at the fourth left intercostal space and 1 cm left of the left sternal border was infiltrated with 1% lidocaine local anesthetic and a 0.5 cm incision was made through the skin. Using the loop recorder insertion tool the loop recorder was inserted through the incision at a 45 downward and leftward angle. The incision was closed with a subcutaneous continuous closure of 4-0 Vicryl followed by a running subcuticular skin closure of 4-0 Vicryl. Steri-Strips were applied and bacitracin ointment was placed on the incision. A dressing was applied. I attest to the content of the Intraoperative Record and any orders documented therein. Any exceptions are noted below.
[2018-11-23] MEDS ORDERED: CEFAZOLIN 2000MG 2,000 MG/15 ML SYR IV SCH (13:00)
[2018-11-23] MEDS ORDERED: ACETAMINOPHEN 325 MG TAB PO PRN (13:02)
[2018-11-23] MEDS ORDERED: KETOROLAC TROMETHAMINE 10 MG TABLET PO PRN (13:02)
--- NOTE | 2018-11-23 15:50 | Discharge Summary ---
Date of Service November 23, 2018 Admission HPI Per Admitting Provider This is a 68-year-old female with past medical history of CVA x2 in May 2018 on Plavix, HLD, morbid obesity with BMI of 40.8, vitamin D deficiency, vitamin B12 deficiency, Crohn's disease currently being treated with prednisone, GERD who presents with acute onset of chest heaviness and shortness of breath. Patient is present here with her today. Patient notes that her chest heaviness appears to be on exertion and started about 1 week ago. The sensation is waxing and waning in nature, lasts for the duration of the activity and then subsides afterwards. Specifically worsens when she walks up a flight of stairs or lifts heavier objects. Initially she believed that this was a form of indigestion. Patient also notes she took her blood pressure several times last week when she felt this way and it was slightly low 80/60 at the lowest, where she typically has a blood pressure of 115/80. Patient admits to poor oral intake and not drink enough fluid in the last week. Patient was traveling in a car for about a 2-hour ride on Wednesday, but denies other prolonged periods of sitting, recent flying on a plane. Admission Exam Per Admitting Provider General: awake, alert, no apparent distress, morbidly obese Head: Normocephalic, atraumatic ENT: PERRL, EOMI, no pharyngeal exudate, mucous membranes moist Chest: Chest nontender to palpation, clear to auscultation, on room air, no adventitious breath sounds Cardiac: Regular rate and rhythm, no murmur, no JVD, normal peripheral pulses, good capillary refill Abdominal: NABS x 4 quadrants, soft, nontender to palpation, no rebound, guarding or tenderness Extremities: Normal inspection, no peripheral edema or erythema, calfs nontender to palpation Psych: Normal mood and affect Neuro: AAO x 3, strength intact bilaterally and related 5/5, no motor deficits, speech is clear, no peripheral sensory deficits Skin: no rash or erythema Principal Diagnosis Palpitations Discharge Exam Constitutional well developed, well nourished, + obese, cooperative and comfortable; not frail appearing Eyes Pupils equal round and reactive, anicteric sclerae Respiratory Lungs clear to auscultation bilaterally, good air entry, symmetrical chest expansion, no cough Cardiovascular Heart sounds dual regular rate and rhythm, no murmurs rubs skips or gallops Gastrointestinal (Abdomen) Abdomen soft non tender Discharge Data Allergies Allergy/AdvReac Type Severity Reaction Status Date / Time morphine AdvReac Severe HALLUCINATI Verified 11/22/18 13:24 ONS amoxicillin AdvReac Mild DIARRHEA Verified 11/22/18 13:24 clavulanic acid AdvReac Mild DIARRHEA Verified 11/22/18 13:24 Penicillins AdvReac Mild Diarrhea Verified 11/23/18 12:57 Augmentin Consultations 11/22/18 14:38 ED Decision to Admit Stat 11/22/18 16:27 Consult Cardiology Routine Consult Case Management - Discharge Planning Routine Procedures Performed Operation Date: 11/23/18 12:00 <No data on this case meets the specified criteria> Operation Date: 11/23/18 12:00 Actual Procedures p Implant Cardiac Event Recorder - Braxton Toribio MD Ordered Studies 11/22/18 13:02 US venous doppler LE RT Stat 11/22/18 16:27 CT angio chest PE protocol Stat Hospital Course (1) DVT prophylaxis: Abhishek Lara was evaluated here at [facility] for her chest discomfort and palpitations Chest discomfort Vital signs stable throughout, patient quickly improved Patient with history of leg swelling and chest discomfort was evaluated for PE in ED doppler swollen right leg negative CTA negative EKG, troponins (x3), echo and stress test all negative Underwent stress Echo - came back negative. Palpitation Received loop recorder surgically placed by Dr. Toribio on day of discharge Chronic problems Made no changes to patient's home medication regimen for her HLD, GERD, pernicious anemia and crohn's disease (2) History of CVA (cerebrovascular accident): (3) GERD (gastroesophageal reflux disease): (4) Morbid obesity with BMI of 40.0-44.9, adult: (5) Chest pain: Total Time Total Time Spent Total Time Spent (In Minutes): 45 Discharge Plan Discharge Items Patient Disposition: Home - Self-Care Reason For Visit: CHEST PAIN Discharge Diagnosis: Palpitations Condition: Good Discharge Goals: Diagnostic testing Activity: Resume your previous activity Non-emergency contact: Primary Care Provider and Mine Wirer Call non-emergency contact if: your symptoms worsen and your temperature is above 100.5 Follow-up/Referrals: Justin Perdomo MD [Primary Care Provider] - 11/29/18 11:45 am (Please, follow up with Dr. Bolton on WednesdayNovember 29 at 11:45 am. TAKE NOTE OF THE APPOINTMENT TIME IT WAS CHANGED TO 11:45 AM. This was done to allow you more time with the physician. If you need to change this appointment, call the office at [phone].) Diet: Heart Healthy Addtl Provider Instructions: Ms. Weiss, It was our pleasure to evaluate and treat you here at [facility] for your chest discomfort and palpitations. We have done our best to rule out life threatening conditions to your symptoms and looked at ischemic heart disease (Heart Attack) and pulmonary embolism (Blood clot to the lungs) in particular. A CT scan of your chest showed no evidence of blood clot in the lungs and a full heart workup including electrocardiogram (EKG), Troponins (Cardiac enzymes released when your heart muscle is damaged), echocardiogram, and stress test were all negative which is reassuring. It is very possible your symptoms could be caused by an arrhythmia and so a loop recorder was placed by Dr. Toribio. This will record your heart rhythms moving forward. If you have any worsening chest pain, syncope or difficulty in breathing please return to medical care. Prescriptions: Continued pantoprazole 40 mg tablet,delayed release (DR/EC) 40 mg PO DAILY Qty: 90 RF: 0 colestipol 1 gram tablet 1 g PO BID RF: 0 atorvastatin 40 mg tablet 40 mg PO HS Qty: 90 RF: 0 cholecalciferol (vitamin D3) 1,000 unit capsule 2,000 unit PO DAILY RF: 0 acetaminophen 650 mg tablet extended release 650 mg PO UD PRN (Reason: Pain) RF: 0 multivitamin [Daily Multi-Vitamin] tablet 1 tab PO DAILY RF: 0 famotidine 40 mg tablet 40 mg PO BID RF: 0 melatonin 1 mg tablet 1 mg PO HS PRN (Reason: Sleep) RF: 0 clopidogrel 75 mg tablet 75 mg PO DAILY Qty: 90 RF: 0 cyanocobalamin (vitamin B-12) 1,000 mcg/mL kit 1,000 mcg IM MONTHLY Qty: 1 RF: 0 Stand-Alone Forms: Call Back Authorization, [facility] Discharge Orders: Discharge Order (Routine); Ordered 11/23/18 Ordered By: Aubrey Granados Admission Data Admit Date/Time: 11/22/18 15:14 Attending Provider: Marissa Muse Admit Provider: Skinny Lopez Primary Care Provider: Justin Perdomo V. Other Providers: Braxton Toribio ; Skinny Lopez Service: Telemetry Other Interventions: Discharge Summary Assessment (RN) Last Done: 11/23/18 14:30 DC Date/Time DO NOT enter until pt leaves facility: 11/23/18 15:04 Supervising Physician Co-Signing Physician Notes Resident Physician Supervision Note: I independently interviewed and examined the patient and verified the garcia history and physical, reviewed labs and image studies, discussed the case with the resident Dr. Granados and agree with the findings and care plan. Time spent in discharge 35 min Resident Activity Tracking Resident Involvement: Resident Care Provided Care Provided: Adult Hospital Medicine
== END 2018-11-23 15:04 | disposition home or self-care (01) ==
LOC: 2S 12:24 → ED 12:24 → SUATTDRO 15:14 → 2S 15:53